=== PATIENT | female | born 1960 | race African-American/Black ===

== ENCOUNTER 2018-08-17 12:42 | Inpatient (IN) | payer OTHER ==
--- NOTE | 2018-08-17 13:37 | PN ---
[facility] Progress Note Note: Patient with hx of cocaine and alcohol dependence and DM II presents today for alcohol detox. Patient is very lethargic, unable to provide urine specimen. Unable to further assess, patient keeps dozing off. HA = 0.00, v/s BP 62/39 repeat 63/34, P79, RR16 BGM 194 AOx2, slurred speech , alcohol on breath EENT WNL s1 s2 lungs clear through out full ROM patient is sent to [facility] for further evaluation, patient is very lethargic and hypotensive sent via [facility]. Called [facility] several times to endorse, no answer.
--- NOTE | 2018-08-18 01:13 | HP ---
CIWA Score Nausea/Vomitin-Mild Nausea/No Vomiting Muscle Tremors: 4-Moderate,w/Arms Extend Anxiety: 3 Agitation: 0-Normal Activity Paroxysmal Sweats: 2 Orientation: 0-Oriented Tacttile Disturbances: 0-None Auditory Disturbances: 0-None Visual Disturbances: 2-Mild Sensitivity Headache: 3-Moderate CIWA-Ar Total Score: 15 - Admission Criteria OASAS Guidelines: Admission for Medically Managed Detox: Requires at least one of the followin. CIWA greater than 12 2. Seizures within the past 24 hours 3. Delirium tremens within the past 24 hours 4. Hallucinations within the past 24 hours 5. Acute intervention needed for co occurring medical disorder 6. Acute intervention needed for co occurring psychiatric disorder 7. Severe withdrawal that cannot be handled at a lower level of care (continued vomiting, continued diarrhea, abnormal vital signs) requiring intravenous medication and/or fluids 8. Admission ROS [facility] Chief Complaint: Alcohol withdrawal symptoms Allergies/Adverse Reactions: Allergies Allergy/AdvReac Type Severity Reaction Status Date / Time No Known Allergies Allergy Verified 08/17/18 13:52 History of Present Illness: 58 years old female with a long history of alcohol dependence is seeking admission to detox. Patient has been to previous detox and reports insignificant period of sobriety. she has medical history of hypothyroidism, HIV+ (on Trimeq, unknown VL, CD4 -follows PCP in [place]), NIDDM, BPD, acid reflux, Substance abuse (cocaine and alcohol). She denies suicide attempt/ suicidal ideation at this time. Exam Limitations: No Limitations - Ebola screening Have you traveled outside of the country in the last 21 days: No Have you had contact with anyone from an Ebola affected area: No Have you been sick,other than usual withdrawal symptoms: No Do you have a fever: No - Review of Systems Constitutional: Chills, Loss of Appetite, Malaise, Night Sweats, Changes in sleep EENT: reports: Sinus Pressure Respiratory: reports: No Symptoms reported Cardiac: reports: No Symptoms Reported GI: reports: Difficulty Swallowing, Poor Appetite, Poor Fluid Intake, Indigestion, Abdominal cramping : reports: No Symptoms Reported Musculoskeletal: reports: Back Pain, Muscle Weakness Integumentary: reports: Dryness, Flushing Neuro: reports: Tremors Endocrine: reports: No Symptoms Reported Hematology: reports: No Symptoms Reported Psychiatric: reports: Mood/Affect Appropiate, Orientated x3, Anxious, Depressed Other Systems: Reviewed and Negative Patient History - Patient Medical History Hx Anemia: No Hx Asthma: Yes (Albuterol) Hx Chronic Obstructive Pulmonary Disease (COPD): No Hx Cancer: No Hx Cardiac Disorders: No Hx Congestive Heart Failure: No Hx Hypertension: No Hx Hypercholesterolemia: No Hx Pacemaker: No HX Cerebrovascular Accident: No Hx Seizures: No Hx Dementia: No Hx Diabetes: Yes Hx Gastrointestinal Disorders: Yes Hx Liver Disease: Yes Hx Sexually Transmitted Disorders: Yes Hx Renal Disease (ESRD): Yes Hx Thyroid Disease: Yes Hx Human Immunodeficiency Virus (HIV): Yes Hx Hepatitis C: No Hx Depression: Yes Hx Suicide Attempt: No (Denies suicidal ideation at thus time) Hx Bipolar Disorder: Yes Hx Schizophrenia: Yes - Patient Surgical History Past Surgical History: No Hx Orthopedic Surgery: Yes (spine surgeryand left knee) Hx Hysterectomy: Yes (1999) - PPD History Previous Implant?: Yes Documented Results: Negative w/o proof Implanted On Prior R Admission?: No Date: 08/18/18 PPD to be Administered?: Yes - Reproductive History Patient is a Female of Child Bearing Age (11 -55 yrs old): Yes LMP comment: Hysterectomy 1999 - Smoking Cessation Smoking history: Never smoked Have you smoked in the past 12 months: No Hx Chewing Tobacco Use: No Initiated information on smoking cessation: No - Substance & Tx. History Hx Alcohol Use: Yes Hx Substance Use: Yes Substance Use Type: Alcohol, Cocaine Hx Substance Use Treatment: No - Substances Abused Alcohol Route: Oral Amount used: vodka -2 pint Age of first use: 19 Date of Last Use: 08/17/18 Family Disease History - Family Disease History Family History: Denies Admission Physical Exam [facility] - Physical General Appearance: Yes: Appropriately Dressed, Moderate Distress HEENTM: Yes: Hearing grossly Normal, Normal ENT Inspection, Normocephalic, Normal Voice, CARLEEN, Rhinorrhea Respiratory: Yes: Lungs Clear, Normal Breath Sounds, No Respiratory Distress Neck: Yes: Supple Breast: Yes: Breast Exam Deferred Cardiology: Yes: Murmur, Tachycardia Abdominal: Yes: Distended Genitourinary: Yes: Uregency Back: Yes: Normal Inspection Musculoskeletal: Yes: Back pain, Muscle Pain Extremities: Yes: Normal Inspection Neurological: Yes: quality assurance analyst II-XII NML intact, Alert, Normal Mood/Affect Integumentary: Yes: Normal Color, Warm Lymphatic: Yes: Within Normal Limits - Diagnostic (1) Uncomplicated alcohol dependence Current Visit: Yes Status: Chronic (2) Hypothyroid Current Visit: Yes Status: Chronic (3) HIV (human immunodeficiency virus infection) Current Visit: Yes Status: Chronic (4) Asthma Current Visit: Yes Status: Chronic Qualifiers: Asthma severity: moderate (5) DM type 2 (diabetes mellitus, type 2) Current Visit: Yes Status: Chronic Qualifiers: Diabetes mellitus complication status: without complication Cleared for Admission S - Detox or Rehab [facility] Level of Care: Medically Managed Detox Regimen/Protocol: Librium Inpatient Rehab Admission - Rehab Decision to Admit Inpatient rehab admission?: No
[2018-08-18] MEDS ORDERED: MENTHOL/PHENOL 1 EACH UD MM PRN ×2 (01:38→08:04)
[2018-08-18] MEDS ORDERED: ACETAMINOPHEN 325 MG TABLET (FP) PO PRN ×4 (01:38→08:04)
[2018-08-18] MEDS ORDERED: METHOCARBAMOL 500 MG TABLET PO PRN ×2 (01:38→08:04)
[2018-08-18] MEDS ORDERED: chlordiazePOXIDE HCL 25 MG CAPSULE PO PRN (01:38)
[2018-08-18] MEDS ORDERED: IBUPROFEN 400 MG TABLET (FP) PO PRN ×2 (01:38→08:04)
[2018-08-18] MEDS ORDERED: BISMUTH SUBSALICYLATE 524 MG/30 ML UD PO PRN (01:38)
[2018-08-18] MEDS ORDERED: hydrOXYzine PAMOATE 25 MG CAPSULE (FP) PO PRN ×2 (01:38→08:04)
[2018-08-18] MEDS ORDERED: MAGNESIUM CITRATE 300 ML BOTTLE PO PRN ×2 (01:38→08:04)
[2018-08-18] MEDS ORDERED: MELATONIN 5 MG TABLETS PO PRN ×2 (01:38→08:04)
[2018-08-18] MEDS ORDERED: MAG HYDROX/AL HYDROX/SIMETH 30 ML UNIT-DOSE CUP PO PRN ×2 (01:38→08:04)
[2018-08-18] MEDS ORDERED: MAGNESIUM HYDROX 2400MG/30ML ORAL SUSPENSION 30 ML CUP PO PRN ×2 (01:38→08:04)
[2018-08-18] MEDS ORDERED: chlordiazePOXIDE HCL 25 MG CAPSULE PO SCH (05:00)
--- NOTE | 2018-08-18 07:00 | HP ---
CIWA Score - Admission Criteria OASAS Guidelines: Admission for Medically Managed Detox: Requires at least one of the followin. CIWA greater than 12 2. Seizures within the past 24 hours 3. Delirium tremens within the past 24 hours 4. Hallucinations within the past 24 hours 5. Acute intervention needed for co occurring medical disorder 6. Acute intervention needed for co occurring psychiatric disorder 7. Severe withdrawal that cannot be handled at a lower level of care (continued vomiting, continued diarrhea, abnormal vital signs) requiring intravenous medication and/or fluids 8. Admission ROS [facility] - HPI Allergies/Adverse Reactions: Allergies Allergy/AdvReac Type Severity Reaction Status Date / Time No Known Allergies Allergy Verified 08/17/18 13:52 - Ebola screening Have you traveled outside of the country in the last 21 days: No Have you had contact with anyone from an Ebola affected area: No Have you been sick,other than usual withdrawal symptoms: No Do you have a fever: No Patient History - Patient Medical History Hx Asthma: Yes Hx Chronic Obstructive Pulmonary Disease (COPD): No Hx Cardiac Disorders: No Hx Hypertension: No Hx Seizures: No Hx Diabetes: Yes Hx Gastrointestinal Disorders: No Hx Genitourinary Disorders: No Hx Sexually Transmitted Disorders: Yes Hx Renal Disease (ESRD): No Hx Depression: Yes Hx Suicide Attempt: No Hx Schizophrenia: Yes - Patient Surgical History Past Surgical History: No Hx Neurologic Surgery: No Hx Cataract Extraction: No Hx Cardiac Surgery: No Hx Lung Surgery: No Hx Breast Surgery: No Hx Breast Biopsy: No Hx Abdominal Surgery: No Hx Appendectomy: No Hx Cholecystectomy: No Hx Genitourinary Surgery: No Hx Section: No Hx Orthopedic Surgery: No Anesthesia Reaction: No - PPD History Previous Implant?: No - Reproductive History Patient : No - Smoking Cessation Smoking history: Never smoked Hx Chewing Tobacco Use: No - Substances Abused Alcohol Route: Oral Frequency: 1-2 times per week Amount used: 1 gallon Age of first use: 48 Date of Last Use: 08/16/18 Crack Route: Smoking Frequency: 1-3 times last 30 days Amount used: $100-$1000 Age of first use: 18 Date of Last Use: 08/16/18 Admission Physical Exam S - Vital Signs Vital Signs: Vital Signs - 24 hr 08/17/18 08/17/18 08/18/18 13:01 23:52 03:06 Temperature 96.8 F L 98.2 F Pulse Rate 79 90 91 H Respiratory 16 18 18 Rate Blood Pressure 60/36 L 128/54 L 120/73 08/18/18 06:52 Temperature 97.5 F L Pulse Rate 100 H Respiratory 20 Rate Blood Pressure 121/73
--- NOTE | 2018-08-18 07:51 | HP ---
CIWA Score Nausea/Vomitin-Mild Nausea/No Vomiting Muscle Tremors: 4-Moderate,w/Arms Extend Anxiety: 3 Agitation: 0-Normal Activity Paroxysmal Sweats: 2 Orientation: 0-Oriented Tacttile Disturbances: 0-None Auditory Disturbances: 0-None Visual Disturbances: 2-Mild Sensitivity Headache: 3-Moderate CIWA-Ar Total Score: 15 - Admission Criteria OASAS Guidelines: Admission for Medically Managed Detox: Requires at least one of the followin. CIWA greater than 12 2. Seizures within the past 24 hours 3. Delirium tremens within the past 24 hours 4. Hallucinations within the past 24 hours 5. Acute intervention needed for co occurring medical disorder 6. Acute intervention needed for co occurring psychiatric disorder 7. Severe withdrawal that cannot be handled at a lower level of care (continued vomiting, continued diarrhea, abnormal vital signs) requiring intravenous medication and/or fluids 8. Admission ROS [facility] Chief Complaint: Alcohol withdrawal symptoms Allergies/Adverse Reactions: Allergies Allergy/AdvReac Type Severity Reaction Status Date / Time No Known Allergies Allergy Verified 08/17/18 13:52 History of Present Illness: 58 years old female with a long history of alcohol dependence is seeking admission to detox. Patient has been to previous detox and reports insignificant period of sobriety. she has medical history of hypothyroidism, HIV+ (on Trimeq, unknown VL, CD4 -follows PCP in [place]), NIDDM, BPD, acid reflux, Substance abuse (cocaine and alcohol). She denies suicide attempt/ suicidal ideation at this time. - Ebola screening Have you traveled outside of the country in the last 21 days: No Have you had contact with anyone from an Ebola affected area: No Have you been sick,other than usual withdrawal symptoms: No Do you have a fever: No - Review of Systems Constitutional: Chills, Loss of Appetite, Malaise, Night Sweats, Changes in sleep EENT: reports: Sinus Pressure Respiratory: reports: No Symptoms reported Cardiac: reports: No Symptoms Reported GI: reports: Diarrhea, Nausea, Poor Appetite, Poor Fluid Intake, Abdominal cramping : reports: No Symptoms Reported Musculoskeletal: reports: Back Pain Integumentary: reports: Dryness, Flushing Neuro: reports: Tremors Endocrine: reports: No Symptoms Reported Hematology: reports: No Symptoms Reported Psychiatric: reports: Mood/Affect Appropiate, Orientated x3, Anxious, Depressed Other Systems: Reviewed and Negative Patient History - Patient Medical History Hx Asthma: Yes Hx Chronic Obstructive Pulmonary Disease (COPD): No Hx Cardiac Disorders: No Hx Hypertension: No Hx Seizures: No Hx Diabetes: Yes Hx Gastrointestinal Disorders: No Hx Genitourinary Disorders: No Hx Sexually Transmitted Disorders: Yes Hx Renal Disease (ESRD): No Hx Depression: Yes Hx Suicide Attempt: No Hx Schizophrenia: Yes - Patient Surgical History Past Surgical History: No Hx Neurologic Surgery: No Hx Cataract Extraction: No Hx Cardiac Surgery: No Hx Lung Surgery: No Hx Breast Surgery: No Hx Breast Biopsy: No Hx Abdominal Surgery: No Hx Appendectomy: No Hx Cholecystectomy: No Hx Genitourinary Surgery: No Hx Section: No Hx Orthopedic Surgery: No Anesthesia Reaction: No - PPD History Previous Implant?: No PPD to be Administered?: Yes - Reproductive History Patient is a Female of Child Bearing Age (11 -55 yrs old): Yes LMP comment: HYSTRECTOMY 2000 Patient : No - Smoking Cessation Smoking history: Never smoked Have you smoked in the past 12 months: No Hx Chewing Tobacco Use: No Initiated information on smoking cessation: No - Substance & Tx. History Hx Alcohol Use: Yes Hx Substance Use: Yes Substance Use Type: Cocaine Hx Substance Use Treatment: [facility] - Substances Abused Alcohol Route: Oral Frequency: 1-2 times per week Amount used: 1 gallon Age of first use: 48 Date of Last Use: 08/16/18 Crack Route: Smoking Frequency: 1-3 times last 30 days Amount used: $100-$1000 Age of first use: 18 Date of Last Use: 08/16/18 Admission Physical Exam S - Vital Signs Vital Signs: Vital Signs - 24 hr 08/17/18 08/17/18 08/18/18 13:01 23:52 03:06 Temperature 96.8 F L 98.2 F Pulse Rate 79 90 91 H Respiratory 16 18 18 Rate Blood Pressure 60/36 L 128/54 L 120/73 08/18/18 06:52 Temperature 97.5 F L Pulse Rate 100 H Respiratory 20 Rate Blood Pressure 121/73 - Physical General Appearance: Yes: Moderate Distress, Tremorous, Anxious HEENTM: Yes: EOMI, Normal ENT Inspection, Normal Voice, Muffled/Hoarse Voice Respiratory: Yes: Lungs Clear, Normal Breath Sounds, No Respiratory Distress Neck: Yes: Supple Breast: Yes: Breast Exam Deferred Cardiology: Yes: Regular Rhythm, Regular Rate Abdominal: Yes: Normal Bowel Sounds Genitourinary: Yes: Within Normal Limits Back: Yes: Normal Inspection Musculoskeletal: Yes: Back pain, Muscle Pain Extremities: Yes: Tremors Neurological: Yes: Alert, Normal Mood/Affect Integumentary: Yes: Warm Lymphatic: Yes: Within Normal Limits - Diagnostic (1) Asthma Current Visit: Yes Status: Chronic Qualifiers: Asthma severity: moderate (2) DM type 2 (diabetes mellitus, type 2) Current Visit: Yes Status: Chronic Qualifiers: Diabetes mellitus complication status: without complication (3) HIV (human immunodeficiency virus infection) Current Visit: Yes Status: Chronic (4) Uncomplicated alcohol dependence Current Visit: No Status: Chronic (5) Alcohol dependence with uncomplicated withdrawal Current Visit: Yes Status: Chronic (6) Hypothyroid Current Visit: Yes Status: Chronic Cleared for Admission S - Detox or Rehab [facility] Level of Care: Medically Managed Detox Regimen/Protocol: Librium Inpatient Rehab Admission - Rehab Decision to Admit Inpatient rehab admission?: No
[2018-08-18] MEDS ORDERED: BISMUTH SUBSALICYLATE 262 MG/15 ML BTL PO PRN (08:04)
[2018-08-18] MEDS ORDERED: chlordiazePOXIDE HCL 10 MG CAPSULE PO PRN (08:04)
[2018-08-18] MEDS ORDERED: NICOTINE 14 MG/24 HOURS TOPICAL PATCH TD SCH (10:00)
[2018-08-18] MEDS ORDERED: PRENATAL VITAMINS W/ FOLIC ACID TABLET (FP) PO SCH (10:00)
[2018-08-18] MEDS: PRENATAL VITAMINS W/ FOLIC ACID TABLET (FP) PO SCH (10:44)
[2018-08-18] MEDS: chlordiazePOXIDE HCL 25 MG CAPSULE PO ONE ×2 (10:45→10:56)
--- NOTE | 2018-08-18 10:54 | PN ---
S CIWA - CIWA Score Nausea/Vomitin-No Nausea/No Vomiting Muscle Tremors: 3 Anxiety: 3 Agitation: 3 Paroxysmal Sweats: 3 Orientation: 0-Oriented Tacttile Disturbances: 0-None Auditory Disturbances: 0-None Visual Disturbances: 0-None Headache: 1-Very Mild CIWA-Ar Total Score: 13 [facility] Progress Note (SOAP) Subjective: sweats irritable agitation interrupted sleep I need all my regular meds ordered. Objective: 08/18/18 10:54 Vital Signs Temperature 98.6 F 08/18/18 09:32 Pulse Rate 93 H 08/18/18 09:32 Respiratory Rate 08/18/18 09:32 Blood Pressure 122/76 08/18/18 09:32 O2 Sat by Pulse Oximetry (%) Laboratory Tests 08/17/18 08/18/18 13:04 07:23 POC Glucometer 194 91 rest of labs were drawn at [place] ED yesterday. Labs noted no need to repeat labs aaox3 ambulating no acute distress Assessment: 08/18/18 10:56 withdrawal sx Plan: continue detox increase fluids will review pt home medication, reconcile and order
[2018-08-18] MEDS ORDERED: PATIENT'S OWN MEDICATION (NON-FORMULARY) (Meloxicam 7.5 MG) PO PRN (11:16)
[2018-08-18] MEDS: chlordiazePOXIDE HCL 25 MG CAPSULE PO SCH ×2 (12:00→22:20)
[2018-08-18] MEDS: PATIENT'S OWN MED:DOLUTEGRAVIR SODIUM 50 MG TABLET (NON-FORMULARY) PO SCH (12:30)
[2018-08-18] MEDS: ASPIRIN 81 MG CHEWABLE TABLETS PO SCH (12:30)
[2018-08-18] MEDS: BACLOFEN 10 MG TABLET (FP) PO PRN ×2 (12:30→22:24)
[2018-08-18] MEDS: LAMIVUDINE 300 MG PO SCH (12:31)
[2018-08-18] MEDS: CALCIUM 500MG/VIT-D 200 UNITS COMBO TABLET (FP) PO SCH ×2 (12:33→22:20)
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
[2018-08-18] MEDS ORDERED: metFORMIN HCL 500 MG TABLET (FP) PO SCH (16:30)
[2018-08-18] MEDS: METFORMIN HCL 500 MG PO SCH (17:30)
[2018-08-18] MEDS ORDERED: THIAMINE HCL 100 MG TABLET (FP) PO SCH (22:00)
[2018-08-18] MEDS: QUEtiapine FUMARATE 100 MG TABLET (FP) PO SCH (22:20)
[2018-08-18] MEDS: THIAMINE HCL 100 MG TABLET (FP) PO SCH (22:20)
[2018-08-18] MEDS: SIMVASTATIN PO SCH (22:21)
[2018-08-19] MEDS ORDERED: chlordiazePOXIDE HCL 25 MG CAPSULE PO SCH (05:00)
[2018-08-19] MEDS: METFORMIN HCL 500 MG PO SCH ×2 (06:24→16:53)
[2018-08-19] MEDS: chlordiazePOXIDE HCL 25 MG CAPSULE PO SCH (06:24)
[2018-08-19] MEDS: LEVOTHYROXINE NA 112 MCG TABLET (FP) PO SCH (06:25)
[2018-08-19] MEDS ORDERED: COLLOIDAL OATMEAL 1 BAR EACH TP PRN (08:55)
[2018-08-19] MEDS: ASPIRIN 81 MG CHEWABLE TABLETS PO SCH (10:36)
[2018-08-19] MEDS: CALCIUM 500MG/VIT-D 200 UNITS COMBO TABLET (FP) PO SCH ×2 (10:37→22:11)
[2018-08-19] MEDS: QUEtiapine FUMARATE 50 MG TABLET PO SCH (10:37)
[2018-08-19] MEDS: ESCITALOPRAM OXALATE 10 MG TABLET (FP) PO SCH (10:37)
[2018-08-19] MEDS: MINERAL OIL/PETROLAT/WATER TOPICAL CREAM 113 GM JAR TP SCH ×2 (10:37→22:11)
[2018-08-19] MEDS: LAMIVUDINE 300 MG PO SCH (10:37)
[2018-08-19] MEDS: PRENATAL VITAMINS W/ FOLIC ACID TABLET (FP) PO SCH (10:37)
[2018-08-19] MEDS: PATIENT'S OWN MED:DOLUTEGRAVIR SODIUM 50 MG TABLET (NON-FORMULARY) PO SCH (10:38)
[2018-08-19] MEDS: ABACAVIR SULFATE 300 MG TABLET PO SCH (10:39)
--- NOTE | 2018-08-19 12:32 | PN ---
S CIWA - CIWA Score Nausea/Vomitin-No Nausea/No Vomiting Muscle Tremors: 3 Anxiety: 3 Agitation: 3 Paroxysmal Sweats: 3 Orientation: 0-Oriented Tacttile Disturbances: 0-None Auditory Disturbances: 0-None Visual Disturbances: 0-None Headache: 0-None Present CIWA-Ar Total Score: 12 [facility] Progress Note (SOAP) Subjective: sweats agitation i need aveeno soap and moisturizing cream because I have eczema Objective: 08/19/18 12:31 Vital Signs Temperature 98.1 F 08/19/18 09:47 Pulse Rate 81 08/19/18 09:47 Respiratory Rate 18 08/19/18 09:47 Blood Pressure 135/79 08/19/18 09:47 O2 Sat by Pulse Oximetry (%) Laboratory Tests 08/17/18 08/18/18 08/18/18 13:04 07:23 16:40 POC Glucometer 194 91 123 08/19/18 06:26 POC Glucometer 95 aaox3 ambulating no acute distress Assessment: 08/19/18 12:31 withdrawal sx Plan: continue detox increase fluids vitamin a&d eucerin cream aveeno soap
[2018-08-19] MEDS: chlordiazePOXIDE 5 MG CAPSULE PO SCH ×2 (12:44→22:11)
[2018-08-19] MEDS: BACLOFEN 10 MG TABLET (FP) PO PRN (22:11)
[2018-08-19] MEDS: SIMVASTATIN PO SCH (22:12)
[2018-08-19] MEDS: QUEtiapine FUMARATE 100 MG TABLET (FP) PO SCH (22:12)
[2018-08-19] MEDS: THIAMINE HCL 100 MG TABLET (FP) PO SCH (22:12)
[2018-08-20] MEDS ORDERED: chlordiazePOXIDE HCL 10 MG CAPSULE PO SCH ×2 (05:00→13:00)
[2018-08-20] MEDS ORDERED: chlordiazePOXIDE HCL 10 MG CAPSULE PO PRN ×2 (05:00→13:00)
[2018-08-20] MEDS: chlordiazePOXIDE 5 MG CAPSULE PO SCH (05:53)
[2018-08-20] MEDS: LEVOTHYROXINE NA 112 MCG TABLET (FP) PO SCH (07:06)
[2018-08-20] MEDS: METFORMIN HCL 500 MG PO SCH ×2 (07:06→17:03)
[2018-08-20] MEDS: CALCIUM 500MG/VIT-D 200 UNITS COMBO TABLET (FP) PO SCH ×2 (10:13→22:07)
[2018-08-20] MEDS: ESCITALOPRAM OXALATE 10 MG TABLET (FP) PO SCH (10:13)
[2018-08-20] MEDS: QUEtiapine FUMARATE 50 MG TABLET PO SCH (10:13)
[2018-08-20] MEDS: LAMIVUDINE 300 MG PO SCH (10:14)
[2018-08-20] MEDS: ASPIRIN 81 MG CHEWABLE TABLETS PO SCH (10:14)
[2018-08-20] MEDS: PRENATAL VITAMINS W/ FOLIC ACID TABLET (FP) PO SCH (10:14)
[2018-08-20] MEDS: ABACAVIR SULFATE 300 MG TABLET PO SCH (10:14)
[2018-08-20] MEDS: MINERAL OIL/PETROLAT/WATER TOPICAL CREAM 113 GM JAR TP SCH ×2 (10:15→22:07)
[2018-08-20] MEDS: PATIENT'S OWN MED:DOLUTEGRAVIR SODIUM 50 MG TABLET (NON-FORMULARY) PO SCH (10:15)
[2018-08-20] MEDS: BACLOFEN 10 MG TABLET (FP) PO PRN ×2 (10:18→22:07)
[2018-08-20 12:18] VITALS: BMI 20.3
--- NOTE | 2018-08-20 13:21 | PN ---
[facility] Progress Note (SOAP) Subjective: i need to see the psychiatrist again regarding my seroquel interrupted sleep Objective: 08/20/18 13:20 Vital Signs Temperature 98.6 F 08/20/18 09:23 Pulse Rate 88 08/20/18 09:23 Respiratory Rate 19 08/20/18 09:23 Blood Pressure 108/65 08/20/18 09:23 O2 Sat by Pulse Oximetry (%) aaox3 ambulating no acute distress Assessment: 08/20/18 13:21 mild withdrawal sx Plan: continue detox psych ordered d/c in am
[2018-08-20] MEDS: chlordiazePOXIDE HCL 10 MG CAPSULE PO SCH (20:10)
[2018-08-20] MEDS: THIAMINE HCL 100 MG TABLET (FP) PO SCH (22:06)
[2018-08-20] MEDS: SIMVASTATIN PO SCH (22:07)
[2018-08-20] MEDS: QUEtiapine FUMARATE 100 MG TABLET (FP) PO SCH (22:07)
[2018-08-21] MEDS: chlordiazePOXIDE HCL 10 MG CAPSULE PO SCH (06:15)
[2018-08-21] MEDS: METFORMIN HCL 500 MG PO SCH (07:10)
[2018-08-21] MEDS: LEVOTHYROXINE NA 112 MCG TABLET (FP) PO SCH (07:10)
[2018-08-21 07:45] VITALS: BP 139/93; PULSE 78; TEMP 97.7
[2018-08-21] MEDS: ESCITALOPRAM OXALATE 10 MG TABLET (FP) PO SCH (09:44)
[2018-08-21] MEDS: PRENATAL VITAMINS W/ FOLIC ACID TABLET (FP) PO SCH (09:44)
[2018-08-21] MEDS: ASPIRIN 81 MG CHEWABLE TABLETS PO SCH (09:44)
[2018-08-21] MEDS: CALCIUM 500MG/VIT-D 200 UNITS COMBO TABLET (FP) PO SCH (09:44)
[2018-08-21] MEDS: QUEtiapine FUMARATE 50 MG TABLET PO SCH (09:46)
[2018-08-21] MEDS: LAMIVUDINE 300 MG PO SCH (09:46)
[2018-08-21] MEDS: PATIENT'S OWN MED:DOLUTEGRAVIR SODIUM 50 MG TABLET (NON-FORMULARY) PO SCH (09:46)
[2018-08-21] MEDS: MINERAL OIL/PETROLAT/WATER TOPICAL CREAM 113 GM JAR TP SCH (09:47)
[2018-08-21] MEDS ORDERED: chlordiazePOXIDE HCL 10 MG CAPSULE PO SCH (10:00)
--- NOTE | 2018-08-21 12:15 | DS ---
[facility] Detox Discharge Summary Admission Date: 08/18/18 Discharge Date: 08/21/18 - History Present History: Alcohol Dependence Pertinent Past History: GERD, asthma, DM, HIV +, Bipolar disorder, schizophrenia, MDD and hypothyroidism - Physical Exam Results Vital Signs: Vital Signs Temperature 97.7 F 08/21/18 07:45 Pulse Rate 78 08/21/18 07:45 Respiratory Rate 18 08/21/18 07:45 Blood Pressure 139/93 08/21/18 07:45 O2 Sat by Pulse Oximetry (%) Pertinent Admission Physical Exam Findings: Withdrawal sx Laboratory Last Values POC Glucometer 111 UNITS (80-120) 08/20/18 22:51 - Treatment Hospital Course: Detox Protocol Followed, Detoxed Safely, Responded well, Discharged Condition Good Patient has Accepted a Rehab Referral to: [facility] - Medication Discharge Medications: Ambulatory Orders Escitalopram Oxalate [Lexapro -] 10 mg PO DAILY 08/18/18 Quetiapine Fumarate [Seroquel -] 100 mg PO HS 08/18/18 Quetiapine Fumarate [Seroquel] 100 mg PO DAILY 08/18/18 - Diagnosis (1) Hypothyroid Status: Chronic (2) HIV (human immunodeficiency virus infection) Status: Chronic (3) Asthma Status: Chronic Qualifiers: Asthma severity: moderate (4) DM type 2 (diabetes mellitus, type 2) Status: Chronic Qualifiers: Diabetes mellitus complication status: without complication (5) Alcohol dependence with uncomplicated withdrawal Status: Acute (6) Schizoaffective disorder Status: Chronic (7) Mood disorder Status: Chronic - AMA Did Patient Leave Against Medical Advice: No
== END 2018-08-21 09:50 | disposition home or self-care (01) | DRG 897 ==
LOC: EDSEX → YASAS 12:42 → Y6N 08-18 01:08
PROVIDERS: ADMIT Surgery; ATTEND Surgery
PROC: HZ2ZZZZ Detoxification Services for Substance Abuse Treatment (ICD-10-PCS; principal; 2018-08-18)
PROC: HZ2ZZZZ Detoxification Services for Substance Abuse Treatment (ICD-10-PCS; 2018-08-18)
DX: F10.230 Alcohol dependence with withdrawal, uncomplicated (principal); F33.9 Major depressive disorder, recurrent, unspecified; F25.9 Schizoaffective disorder, unspecified; F39 Unspecified mood [affective] disorder; Z21 Asymptomatic human immunodeficiency virus [HIV] infection status; E03.9 Hypothyroidism, unspecified; E11.9 Type 2 diabetes mellitus without complications; J45.909 Unspecified asthma, uncomplicated; K21.9 Gastro-esophageal reflux disease without esophagitis; Z79.84 Long term (current) use of oral hypoglycemic drugs
CPT/HCPCS: 36415; 71045-TC-FY; 80053; 80307; 81003; 82550; 82962; 83605; 84443; 84484; 85025; 85610; 93005; 93010; 99284-25; J0475; J7030

== ENCOUNTER 2018-08-17 13:46 | Emergency (ER) | payer OTHER | END 2018-08-17 21:42 | disposition home or self-care (01) | LOC: JER 13:46 ==

== ENCOUNTER 2019-07-05 20:04 | Emergency (ER) | payer OTHER ==
[2019-07-05 21:03] VITALS: TEMP 98.1; BMI 31.6
--- NOTE | 2019-07-05 22:29 | PDOC ---
Documentation entered by Franky Lopez SCRIBE, acting as scribe for Keila Lynn MD. Keila Lynn MD: This documentation has been prepared by the John duarte Xhesika, SCRIBE, under my direction and personally reviewed by me in its entirety. I confirm that the documentation accurately reflects all work, treatment, procedures, and medical decision making performed by me. Attending Attestation - Resident Resident Name: Domenico García - ED Attending Attestation I have performed the following: I have examined & evaluated the patient, The case was reviewed & discussed with the resident, I agree w/resident's findings & plan, Exceptions are as noted - HPI HPI: 07/05/19 22:13 The patient is a 59 year old female with no significant PMH of DM, alcohol dependence, cocaine use, HIV, hypothyroidism who presents to the emergency department for 6 days of L leg pain. Pt states 2 days ago she defecated on herself. Pt reports having a total L knee replacement last year. The patient denies chest pain, shortness of breath, headache and dizziness. Denies fever, chills, cough, nausea, vomiting, diarrhea and constipation. Denies dysuria, frequency, urgency and hematuria. Allergies: Sulfur Dioxide Past surgical history: total L knee replacement - Physicial Exam PE: 07/05/19 22:27 Patient is alert and conversant Abdomen nontender Lungs are clear to auscultation CVS regular rate and rhythm Normal rectal tone Neuro patient can ambulate,Alert and oriented x3, no gross focal neural deficits 07/06/19 02:09 - Medical Decision Making 07/05/19 22:27 59-year-old female past medical history of hypothyroidism, HIV, asthma, type 2 diabetes, EtOH dependence, schizoaffective disorder brought in by ambulance for left leg pain. No acute trauma. She has a history of pain and does see a rn pain management 07/06/19 01:40 I STOP was reviewed and she did get opiates from her PCP 05/31/19 07/06/19 02:06 CAT scan of her cervical spine did not show any fracture, no subluxation CAT scan of the thoracic spine did not show any fracture CAT scan of her lumbar vertebrae did show that her hardware was intact, no fracture 07/06/19 02:08 Patient can ambulate by herself to the bathroom 07/06/19 02:11 Chronic musculoskeletal pain. Plain films are pending patient has received Toradol Patient signed out to Dr. Valencia
--- NOTE | 2019-07-05 23:16 | PDOC ---
History of Present Illness - General Chief Complaint: Pain, Acute Stated Complaint: LEG PAIN Time Seen by Provider: 07/05/19 22:04 History Source: Patient Exam Limitations: No Limitations - History of Present Illness Initial Comments: 59 yo F with a hx of DM, ETOH abuse, cocaine use, HIV, hypothyroidism, and surgical intervention with left knee replacement and left femur stabilization presents to the emergency department with 6 days of acute on chronic left leg pain and self defecation on herself for the past 2 days. Per the patient, she uses oxycodone and stated she had it filled last month (May 2019) and ran out of her medications ahead of schedule (she endorses that she should be taking 1 pill per day but has been taking 3 pills per day). She had total left knee replacement last year done at [facility]. In relation to the self defecation , the patient states she has had a difficult time holding her stools in over the past 2 days. Denies new muscle weakness in the left leg and denies sensation loss in the left leg. Denies the following: fevers, chills, chest pain, SOB, headache, urinary incontinence, dizziness, lightheadedness, unstable gait (she uses a cane at baseline; no changes in ability to ambulate), dysuria, hematuria, and N/V. Denies diarrhea. Allergies: Sulfur dioxide Social: Denies current use of illicit substances. Denies current use of ETOH and tobacco. Past History - Past Medical History Allergies/Adverse Reactions: Allergies Allergy/AdvReac Type Severity Reaction Status Date / Time sulfur dioxide AdvReac Hives Verified 07/05/19 21:31 Home Medications: Ambulatory Orders Abacavir/Dolutegravir/Lamivudi [Triumeq Tablet] 1 each PO DAILY 07/05/19 Acetaminophen [Tylenol] 650 mg PO PRN PRN 07/05/19 Albuterol Sulfate Inhaler - [Ventolin Hfa Inhaler -] 1 puff IH PRN PRN 07/05/19 Aspirin [ASA -] 325 mg PO BID 07/05/19 Budesonide/Formeterol Fumarate [SYMBICORT 80/4.5mcg -] 1 inh PO BID 07/05/19 Duloxetine HCl 20 mg PO DAILY 07/05/19 Famotidine 20 mg PO BID 07/05/19 Fluticasone Furoate [Arnuity Ellipta] 50 mcg IH PRN PRN 07/05/19 Gabapentin [Neurontin -] 300 mg PO TID 07/05/19 Gabapentin [Neurontin] 100 mg PO TID 07/05/19 Levothyroxine [Synthroid -] 150 mcg PO DAILY 07/05/19 Lidocaine HCl [Aspercreme] 76.5 gm TP PRN PRN 07/05/19 Metformin HCl [Glucophage] 500 mg PO BID 07/05/19 Oxycodone HCl 10 mg PO PRN PRN 07/05/19 Simvastatin 40 mg PO HS 07/05/19 Asthma: Yes (Albuterol) Cardiac Disorders: No COPD: No Diabetes: Yes GI Disorders: Yes Disorders: No HTN: No Kidney Stones: No Seizures: No - Surgical History Abdominal Surgery: No Appendectomy: No Cardiac Surgery: No Cholecystectomy: No Lung Surgery: No Neurologic Surgery: No Orthopedic Surgery: Yes (spine surgeryand left knee) - Reproductive History PID: No - Psycho Social/Smoking Cessation Hx Smoking History: Never smoked Have you smoked in the past 12 months: No Hx Alcohol Use: No Drug/Substance Use Hx: No Substance Use Type: Alcohol, Cocaine Hx Substance Use Treatment: No Review of Systems - Review of Systems Able to Perform ROS?: Yes Is the patient limited [place] proficient: No Constitutional: No: Chills, Diaphoresis, Fever, Weakness HEENTM: No: Ear Pain, Nose Pain, Throat Pain, Mouth Pain Respiratory: No: Cough, Shortness of Breath, Hemoptysis Cardiac (ROS): No: Chest Pain, Lightheadedness, Palpitations, Chest Tightness ABD/GI: No: Constipated, Diarrhea, Nausea, Rectal Bleeding, Vomiting, Tarry Stools : No: Burning, Dysuria, Hematuria Musculoskeletal: Yes: Back Pain (lower lumbar back), Joint Pain (left knee and hip). No: Muscle Weakness, Neck Pain Integumentary: No: Bruising, Erythema, Rash Neurological: No: Headache, Numbness, Paresthesia, Tingling, Tremors, Ataxia Psychiatric: No: Change in Appetite Endocrine: No: Unexplained Weight Loss Hematologic/Lymphatic: No: Anemia *Physical Exam - Vital Signs Last Vital Signs Temp Pulse Resp BP Pulse Ox 98.1 F 77 18 125/74 99 07/05/19 20:15 07/05/19 20:15 07/05/19 20:15 07/05/19 20:15 07/05/19 20:15 - Physical Exam General Appearance: Yes: Nourished, Appropriately Dressed. No: Apparent Distress, Intoxicated HEENT: positive: EOMI, CARLEEN, Normal Voice, Symmetrical, Pharynx Normal, Hearing Grossly Normal, Other (missing teeth). negative: Pale Conjunctivae, Scleral Icterus (R), Scleral Icterus (L), Muffled/Hoarse voice, Pharyngeal Erythema, Tonsillar Exudate, Tonsillar Erythema, Nasal Congestion, Rhinorrhea, Excessive drooling Neck: positive: Trachea midline, Supple. negative: Tender, Lymphadenopathy (R) , Lymphadenopathy (L) Respiratory/Chest: positive: Lungs Clear, Normal Breath Sounds. negative: Chest Tender, Respiratory Distress, Accessory Muscle Use Cardiovascular: positive: Regular Rhythm, Regular Rate, S1, S2. negative: Systolic Murmur Gastrointestinal/Abdominal: positive: Normal Bowel Sounds, Flat, Soft. negative : Tender Rectal Exam: positive: normal exam, normal rectal tone. negative: melena Lymphatic: negative: Adenopathy Musculoskeletal: positive: Normal Inspection, Vertebral Tenderness (midline in the lumbar region L3-L5). negative: CVA Tenderness Extremity: positive: Normal Capillary Refill, Normal Inspection, Normal Range of Motion, Tender (in the anterior left femur section and anterior knee. ROM intact on active and passive. No sensory deficits. ) Integumentary: positive: Normal Color Neurologic: positive: methods analyst II-XII NML intact, Fully Oriented, Alert, Normal Mood/ Affect, Normal Response, Motor Strength 5/5. negative: EOM Palsy, Facial Droop , Numbness, Sensory Deficit ED Treatment Course - RADIOLOGY Radiology Studies Ordered: Category Date Time Status CERVICAL SPINE CT W/O CONTR [CT] Stat CT Scan 07/05/19 22:[address] W/O CONTRAST [CT] Stat CT Scan 07/05/19 22:[address] W/O CONTRAST [CT] Stat CT Scan 07/05/19 22:44 Ordered FEMUR-LEFT [RAD] Stat Radiology 07/05/19 22:44 Ordered HIP & PELVIS-LEFT [RAD] Stat Radiology 07/05/19 22:44 Ordered KNEE 3 POS-LEFT [RAD] Stat Radiology 07/05/19 22:44 Ordered Medical Decision Making - Medical Decision Making 59 yo F with a hx of DM, ETOH abuse, cocaine use, HIV, hypothyroidism, and surgical intervention with left knee replacement and left femur stabilization presents to the emergency department with 6 days of acute on chronic left leg pain and self defecation on herself for the past 2 days. Initial vitals: Initial Vital Signs Temp Pulse Resp BP Pulse Ox 98.1 F 77 18 125/74 99 07/05/19 20:15 07/05/19 20:15 07/05/19 20:15 07/05/19 20:15 07/05/19 20:15 Work up: patient presents with acute on chronic leg pain, knee pain, and hip pain. will obtain imaging to rule out new fractures. denies trauma. Rectal examination chaperoned by Rashmi CT of the cervical, thoracic, and lumbar spine does not show fracture. Xrays of the femur and knee shows hardware in place without new fractures. 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 07/06/19 04:41 Patient observed in the emergency department ambulating on her own volition on multiple occassions to the bathroom without deficits. The patient was given 30 mg of toradol for pain management and also prescribed tylenol but refused the medication stating to the nurse that "doesnt work". The patient relayed to me that she received her oxycodone in May 2019, however I-stop records indicate that she filled her prescription Jun 17, 2019. When I asked the patient on why she ran out of her oxydocone 2 days ago, she said she was suppose to take 1 pill per day, however was taking 3 pills a day because "that' s what I want". When I asked the patient if that was a pain specialist who prescribed her the oxycodone, she states that Dr. De Los Santos was an emergency medicine doctor who prescribed it from the ED from a recent visit. On internet search, Dr. Dodie De Los Santos is an metal cans supervisor at [facility]. I relayed the findings of the xrays and CT scans to the patient. I offered the patient to, again, trial the tylenol and lidoderm and the patient refused. She became agitated. She has a pain medicine appointment, per the patient, tomorrow. The patient is able to move all 4 extremities spontaneously. Dispo: Discharge Discharge - Discharge Information Problems reviewed: Yes Clinical Impression/Diagnosis: Leg pain Disposition: HOME - Admission No - Additional Discharge Information Prescription Drug Monitoring Program (I-STOP) results: I-STOP reviewed and issues identified - Follow up/Referral Referrals: [facility] [place] [facility] [place] [facility] [place] [Provider Group] Alva Pringle MD [Staff Physician] - Duglas Chu MD [Non Staff, Medical] - Bhavesh Woodard MD [Staff Physician] - Kamar Sams MD [Staff Physician] - Nessa Hutchinson MD [Non Staff, Medical] - Jaylen Dickerson MD [Non Staff, Medical] - Kay Bruner MD [Non Staff, Medical] - Rhonda Coffman MD [Staff Physician] - Taz Bunch MD [Non Staff, Medical] - Lakeshia Khan MD [Staff Physician] - - Patient Discharge Instructions Patient Printed Discharge Instructions: DI for Leg Pain Additional Instructions: You were seen in the emergency department for your leg pain with weakness and pain. Your CT and xrays of your extremities do not show new fractures. You were able to walk around the department without issue. Please follow up with your primary medical doctor within 1 week after discharge. Please keep your appointment with your pain doctor tomorrow. Please continue to use ibuprofen and tylenol as directed on the label as needed. I referred to you multiple physicians who are pain doctors. Please follow up with them within 48 hours after discharge for follow up care and management. Thank you. - Post Discharge Activity Work/Back to School Note: Back to Work
[2019-07-06] MEDS ORDERED: KETOROLAC TROMETHAMINE 30 MG/1 ML VIAL IM ONE (00:52)
[2019-07-06] MEDS ORDERED: ACETAMINOPHEN 325 MG TABLET (FP) PO ONE (00:57)
[2019-07-06] MEDS ORDERED: ACETAMINOPHEN 325 MG TABLET (FP) ONE (01:02)
[2019-07-06] MEDS ORDERED: KETOROLAC TROMETHAMINE 30 MG/1 ML VIAL ONE (01:03)
[2019-07-06 05:33] VITALS: BP 127/78; PULSE 75
== END 2019-07-06 06:45 | disposition home or self-care (01) ==
LOC: JER 20:04
PROC: 3E0233Z Introduction of Anti-inflammatory into Muscle, Percutaneous Approach (ICD-10-PCS; principal; 2019-07-05)
DX: R29.898 Other symptoms and signs involving the musculoskeletal system (principal); M79.605 Pain in left leg; G89.29 Other chronic pain; E11.9 Type 2 diabetes mellitus without complications; Z79.84 Long term (current) use of oral hypoglycemic drugs; E03.9 Hypothyroidism, unspecified; J45.909 Unspecified asthma, uncomplicated; F10.20 Alcohol dependence, uncomplicated; F14.10 Cocaine abuse, uncomplicated; Z21 Asymptomatic human immunodeficiency virus [HIV] infection status; Z88.2 Allergy status to sulfonamides
CPT/HCPCS: 72125-TC; 72128-TC; 72131-TC; 73523-TC-FY; 73552-TC-LT-FY; 73560-TC-LT-FY; 96372; 99284-25

== ENCOUNTER 2021-05-12 15:40 | Emergency (ER) | payer OTHER ==
[2021-05-12 16:07] VITALS: BP 125/77; PULSE 77; TEMP 97; BMI 38.2
[2021-05-12] MEDS ORDERED: KETOROLAC TROMETHAMINE 60 MG/2 ML VIAL ONE (16:51)
[2021-05-12] MEDS ORDERED: KETOROLAC TROMETHAMINE 60 MG/2 ML VIAL IM ONE (16:51)
[2021-05-12] MEDS ORDERED: ONDANSETRON *ODT* 4 MG TABLET SL ONE (19:37)
[2021-05-12] MEDS ORDERED: ONDANSETRON *ODT* 4 MG TABLET ONE (19:37)
== END 2021-05-12 21:00 | disposition home or self-care (01) ==
LOC: JERFT 15:40 → JER 15:40 → JERFT 21:00
PROC: 3E023GC Introduction of Other Therapeutic Substance into Muscle, Percutaneous Approach (ICD-10-PCS; principal; 2021-05-12)
DX: N64.4 Mastodynia (principal); M79.602 Pain in left arm
CPT/HCPCS: 76641-TC-LT; 93971; 99284-25; Q0162

== ENCOUNTER 2022-06-22 01:22 | Inpatient (IN) | payer OTHER ==
[2022-06-22 01:35] VITALS: BMI 35.6
[2022-06-22] MEDS ORDERED: FAMOTIDINE 20 MG TABLET PO ONE (02:01)
[2022-06-22] MEDS ORDERED: diphenhydrAMINE HCL 25 MG CAPSULE (FP) PO ONE ×2 (02:01→02:24)
[2022-06-22] MEDS ORDERED: FAMOTIDINE 20 MG TABLET ONE (02:24)
[2022-06-22] MEDS ORDERED: DEXAMETHASONE 4 MG TABLET (FP) PO ONE (02:29)
[2022-06-22] MEDS ORDERED: DEXAMETHASONE 4 MG TABLET (FP) ONE (02:30)
[2022-06-22 03:26] LABS: EOS % 8.8 % (0-4.5); HEMATOCRIT 39.8 % (32.4-45.2); HEMOGLOBIN 12.9 GM/dL (10.7-15.3); LYMPH % 38.7 % (8-40); MCHC 32.4 g/dl (32.0-36.0); MEAN CELL VOLUME 89.3 fl (80-96); MEAN PLT VOLUME 7.4 fl (7.5-11.1); MONO % 6.3 % (3.8-10.2); NEUT % 45.2 % (42.8-82.8); PLATELET COUNT 446 10^3/uL (134-434); RBC 4.46 M/mm3 (3.60-5.2); RDW 15.4 % (11.6-15.6); WHITE BLOOD COUNT 7.2 K/mm3 (4.0-10.0)
[2022-06-22 03:43] LABS: CHLORIDE 104 mmol/L (98-107); SODIUM 140 mmol/L (136-145)
[2022-06-22 03:45] LABS: CALCIUM 9.7 mg/dL (8.5-10.1); GLUCOSE,RANDOM 102 mg/dL (74-106)
[2022-06-22 03:46] LABS: ALBUMIN 3.9 g/dl (3.4-5.0); ANION GAP 5 MMOL/L (8-16); BLOOD UREA NITROGEN 13.3 mg/dL (7-18); CO2 31 mmol/L (21-32)
[2022-06-22 03:49] LABS: CREATININE 0.7 mg/dL (0.55-1.3); SGOT/AST 25 U/L (15-37); SGPT/ALT 26 U/L (13-61)
[2022-06-22 03:50] LABS: BILIRUBIN,TOTAL 0.3 mg/dL (0.2-1); TOT PROT 7.8 g/dl (6.4-8.2)
[2022-06-22 03:51] LABS: ALK PHOS 108 U/L (45-117)
[2022-06-22] MEDS ORDERED: ASPIRIN 325 MG TABLET PO ONE (04:56)
[2022-06-22] MEDS ORDERED: ASPIRIN 325 MG TABLET ONE (05:40)
[2022-06-22 06:54] LABS: INR 1.04 (0.83-1.09)
[2022-06-22 06:57] LABS: ACTIVATED PTT 35.9 SECONDS (25.2-36.5)
[2022-06-22 09:27] LABS: BASO % 0.8 % (0-2.0); EOS % 0.3 % (0-4.5); HEMATOCRIT 38.9 % (32.4-45.2); HEMOGLOBIN 12.9 GM/dL (10.7-15.3); LYMPH % 16.7 % (8-40); MCH 29.4 pg (25.7-33.7); MCHC 33.1 g/dl (32.0-36.0); MEAN CELL VOLUME 88.8 fl (80-96); MEAN PLT VOLUME 7.9 fl (7.5-11.1); MONO % 1.2 % (3.8-10.2); PLATELET COUNT 456 10^3/uL (134-434); RBC 4.39 M/mm3 (3.60-5.2); RDW 15.1 % (11.6-15.6); WHITE BLOOD COUNT 5.2 K/mm3 (4.0-10.0)
[2022-06-22 09:31] LABS: INR 1.08 (0.83-1.09); PROTHROMBIN TIME (PATIENT) 12.4 SEC (9.7-13.0)
[2022-06-22] MEDS ORDERED: ASPIRIN 81 MG CHEWABLE TABLETS ONE (09:44)
[2022-06-22] MEDS ORDERED: metoPROLOL SUCCINATE 25 MG TAB.SR.24H (FP) PO ONE (09:44)
[2022-06-22] MEDS ORDERED: ENOXAPARIN NA (PORCINE) 40 MG/0.4 ML DISP.SYRIN SQ ONE (09:44)
[2022-06-22] MEDS: ENOXAPARIN NA (PORCINE) 40 MG/0.4 ML DISP.SYRIN SQ SCH (09:49)
[2022-06-22] MEDS: ABACAVIR/DOLUTEGRAVIR/LAMIVUDI (TRIUMEQ) TABLET -NF PO SCH ×2 (09:49→12:44)
[2022-06-22] MEDS: ASPIRIN 81 MG CHEWABLE TABLETS PO SCH (09:49)
[2022-06-22 09:50] LABS: CHLORIDE 105 mmol/L (98-107); SODIUM 140 mmol/L (136-145)
[2022-06-22 09:54] LABS: ALBUMIN 3.9 g/dl (3.4-5.0); BLOOD UREA NITROGEN 11.7 mg/dL (7-18); GLUCOSE,RANDOM 117 mg/dL (74-106)
[2022-06-22 09:55] LABS: ANION GAP 7 MMOL/L (8-16); CO2 28 mmol/L (21-32)
[2022-06-22 09:57] LABS: SGOT/AST 23 U/L (15-37); SGPT/ALT 26 U/L (13-61)
[2022-06-22 09:58] LABS: BILIRUBIN,TOTAL 0.3 mg/dL (0.2-1); TOT PROT 7.9 g/dl (6.4-8.2)
[2022-06-22 09:59] LABS: ALK PHOS 102 U/L (45-117); CREATININE 0.7 mg/dL (0.55-1.3)
[2022-06-22] MEDS: metoPROLOL SUCCINATE 25 MG TAB.SR.24H (FP) PO SCH (10:12)
[2022-06-22 10:30] LABS: METHADONE, UR NEGATIVE (NEGATIVE); PHENCYCLIDINE,URINE NEGATIVE (NEGATIVE); URINE BENZODIAZEPINES NEGATIVE (NEGATIVE)
[2022-06-22 10:32] LABS: OPIATES, URI NEGATIVE (NEGATIVE)
[2022-06-22 10:36] LABS: COCAINE, UR NEGATIVE (NEGATIVE)
[2022-06-22] MEDS: INSULIN SLIDING SCALE (NOVOLOG) 1 VIAL SQ SCH ×2 (10:45→17:44)
[2022-06-22 10:46] LABS: URINE AMPHETAMINES NEGATIVE (NEGATIVE); URINE BARBITURATES NEGATIVE (NEGATIVE)
[2022-06-22] MEDS ORDERED: ALBUTEROL SO4 HFA INHALER IH PRN (15:53)
[2022-06-22] MEDS ORDERED: ACETAMINOPHEN 325 MG TABLET (FP) PO PRN (15:55)
[2022-06-22] MEDS: BUDESONIDE/FORMETEROL FUMARATE 160/4.5 mcg INHALER IH SCH (21:13)
[2022-06-22] MEDS: ROSUVASTATIN CA 20 MG TABLET PO SCH (21:14)
[2022-06-23] MEDS: LEVOTHYROXINE NA 125 MCG TABLET (FP) PO SCH (06:45)
[2022-06-23] MEDS: INSULIN SLIDING SCALE (NOVOLOG) 1 VIAL SQ SCH ×4 (06:47→17:45)
[2022-06-23] MEDS: BUDESONIDE/FORMETEROL FUMARATE 160/4.5 mcg INHALER IH SCH ×2 (10:27→21:47)
[2022-06-23] MEDS: ENOXAPARIN NA (PORCINE) 40 MG/0.4 ML DISP.SYRIN SQ SCH (10:27)
[2022-06-23] MEDS: ASPIRIN 81 MG CHEWABLE TABLETS PO SCH (10:27)
[2022-06-23] MEDS: metoPROLOL SUCCINATE 25 MG TAB.SR.24H (FP) PO SCH (10:27)
[2022-06-23] MEDS: ABACAVIR/DOLUTEGRAVIR/LAMIVUDI (TRIUMEQ) TABLET -NF PO SCH (10:27)
[2022-06-23 12:22] LABS: BASO % 0.7 % (0-2.0); EOS % 0.9 % (0-4.5); HEMATOCRIT 39.5 % (32.4-45.2); LYMPH % 43.1 % (8-40); MCH 29.2 pg (25.7-33.7); MEAN CELL VOLUME 88.6 fl (80-96); MEAN PLT VOLUME 7.9 fl (7.5-11.1); MONO % 5.7 % (3.8-10.2); NEUT % 49.6 % (42.8-82.8); PLATELET COUNT 430 10^3/uL (134-434); RBC 4.46 M/mm3 (3.60-5.2); RDW 15.6 % (11.6-15.6); WHITE BLOOD COUNT 8.3 K/mm3 (4.0-10.0)
[2022-06-23] MEDS: POLYETHYLENE GLYCOL (HEALTHYLAX) 3350 17 GM PACKET PO SCH (12:25)
[2022-06-23 12:28] LABS: INR 0.96 (0.83-1.09)
[2022-06-23 12:30] LABS: ACTIVATED PTT 35.8 SECONDS (25.2-36.5)
[2022-06-23 12:39] LABS: CHLORIDE 104 mmol/L (98-107); SODIUM 142 mmol/L (136-145)
[2022-06-23 12:41] LABS: CALCIUM 9.4 mg/dL (8.5-10.1)
[2022-06-23 12:42] LABS: ALBUMIN 3.9 g/dl (3.4-5.0); ANION GAP 11 MMOL/L (8-16); BLOOD UREA NITROGEN 16.1 mg/dL (7-18); CO2 26 mmol/L (21-32); GLUCOSE,RANDOM 86 mg/dL (74-106)
[2022-06-23 12:44] LABS: CREATININE 0.8 mg/dL (0.55-1.3); PHOSPHOROUS 3.8 mg/dL (2.5-4.9); SGOT/AST 16 U/L (15-37)
[2022-06-23 12:45] LABS: SGPT/ALT 23 U/L (13-61)
[2022-06-23 12:46] LABS: BILIRUBIN,TOTAL 0.4 mg/dL (0.2-1); TOT PROT 7.7 g/dl (6.4-8.2)
[2022-06-23 12:47] LABS: ALK PHOS 92 U/L (45-117)
[2022-06-23 12:50] LABS: N-TERMINAL BNP 103.2 pg/ml (5-125)
[2022-06-23] MEDS: DOXYCYCLINE HYCLATE 100 MG CAPSULE PO SCH (17:42)
[2022-06-23] MEDS: ROSUVASTATIN CA 20 MG TABLET PO SCH (21:47)
[2022-06-24] MEDS: INSULIN SLIDING SCALE (NOVOLOG) 1 VIAL SQ SCH ×2 (06:19→12:14)
[2022-06-24] MEDS: LEVOTHYROXINE NA 125 MCG TABLET (FP) PO SCH (06:34)
[2022-06-24 08:20] LABS: EOS % 3.1 % (0-4.5); HEMATOCRIT 38.6 % (32.4-45.2); HEMOGLOBIN 12.8 GM/dL (10.7-15.3); LYMPH % 53.5 % (8-40); MCH 29.5 pg (25.7-33.7); MEAN CELL VOLUME 89.3 fl (80-96); MEAN PLT VOLUME 8.5 fl (7.5-11.1); MONO % 5.4 % (3.8-10.2); PLATELET COUNT 372 10^3/uL (134-434); RBC 4.33 M/mm3 (3.60-5.2); RDW 15.3 % (11.6-15.6)
[2022-06-24 08:22] LABS: CALCIUM 9.1 mg/dL (8.5-10.1)
[2022-06-24 08:23] LABS: BLOOD UREA NITROGEN 16.5 mg/dL (7-18)
[2022-06-24 08:26] LABS: CREATININE 0.8 mg/dL (0.55-1.3)
[2022-06-24 08:28] LABS: BILIRUBIN,TOTAL 0.6 mg/dL (0.2-1); TOT PROT 7.4 g/dl (6.4-8.2)
[2022-06-24] MEDS: DOXYCYCLINE HYCLATE 100 MG CAPSULE PO SCH (09:57)
[2022-06-24] MEDS: POLYETHYLENE GLYCOL (HEALTHYLAX) 3350 17 GM PACKET PO SCH (09:57)
[2022-06-24] MEDS: metoPROLOL SUCCINATE 25 MG TAB.SR.24H (FP) PO SCH (09:57)
[2022-06-24] MEDS: ASPIRIN 81 MG CHEWABLE TABLETS PO SCH (09:57)
[2022-06-24] MEDS: ENOXAPARIN NA (PORCINE) 40 MG/0.4 ML DISP.SYRIN SQ SCH (09:58)
[2022-06-24] MEDS: BUDESONIDE/FORMETEROL FUMARATE 160/4.5 mcg INHALER IH SCH (09:58)
[2022-06-24] MEDS: ABACAVIR/DOLUTEGRAVIR/LAMIVUDI (TRIUMEQ) TABLET -NF PO SCH (10:00)
[2022-06-24 10:17] VITALS: BP 150/86; PULSE 72; RESP 18; TEMP 97.8
== END 2022-06-24 14:43 | disposition home or self-care (01) | DRG 976 ==
LOC: JER 01:22 → JERBED 05:43 → OBSVTOIN 09:27 → J4W 18:58
PROVIDERS: ADMIT Internal Medicine; ATTEND Internal Medicine
DX: U07.1 COVID-19 (principal); B20 Human immunodeficiency virus [HIV] disease; E11.9 Type 2 diabetes mellitus without complications; E03.9 Hypothyroidism, unspecified; R07.89 Other chest pain; F25.9 Schizoaffective disorder, unspecified; F10.10 Alcohol abuse, uncomplicated
CPT/HCPCS: 0241U-QW; 36415; 71045-TC-FY; 80053; 80307; 82962; 83735; 83880; 84100; 84443; 84479; 84484; 85025; 85610; 85651; 85730; 86140; 93005; 93010; 99285-25; G0378

== ENCOUNTER 2022-08-07 12:58 | Observation (INO) | payer OTHER ==
[2022-08-07] MEDS ORDERED: ACETAMINOPHEN 1000 MG/100 ML BAG IVPB ONE (14:34)
[2022-08-07] MEDS ORDERED: ACETAMINOPHEN INJECTION 100 ML IVPB ONE (14:51)
[2022-08-07 15:44] LABS: BASO % 0.7 % (0-2.0); EOS % 3.7 % (0-4.5); HEMATOCRIT 36.8 % (32.4-45.2); HEMOGLOBIN 11.7 GM/dL (10.7-15.3); LYMPH % 44.7 % (8-40); MCH 27.8 pg (25.7-33.7); MCHC 31.8 g/dl (32.0-36.0); MEAN CELL VOLUME 87.4 fl (80-96); MEAN PLT VOLUME 7.6 fl (7.5-11.1); MONO % 6.6 % (3.8-10.2); NEUT % 44.3 % (42.8-82.8); PLATELET COUNT 294 10^3/uL (134-434); RBC 4.21 M/mm3 (3.60-5.2); RDW 16.1 % (11.6-15.6); WHITE BLOOD COUNT 5.2 K/mm3 (4.0-10.0)
[2022-08-07 15:50] LABS: INR 1.15 (0.83-1.09); PROTHROMBIN TIME (PATIENT) 13.3 SEC (9.7-13.0)
[2022-08-07 15:53] LABS: ACTIVATED PTT 34.2 SECONDS (25.2-36.5)
[2022-08-07] MEDS ORDERED: oxyCODONE HCL 5 MG TABLET PO ONE (15:54)
[2022-08-07 16:04] LABS: CALCIUM 9.5 mg/dL (8.5-10.1)
[2022-08-07 16:05] LABS: ALBUMIN 3.4 g/dl (3.4-5.0); MAGNESIUM 1.9 mg/dL (1.8-2.4)
[2022-08-07 16:08] LABS: CREATININE 0.8 mg/dL (0.55-1.3)
[2022-08-07 16:10] LABS: BILIRUBIN,TOTAL 0.6 mg/dL (0.2-1)
[2022-08-07 16:13] LABS: N-TERMINAL BNP 36.4 pg/ml (5-125)
[2022-08-07 16:44] LABS: PH,URINE 5.5 (5.0-8.0); URINE APPEARANCE CLEAR; URINE BILIRUBIN NEGATIVE (NEGATIVE); URINE COLOR YELLOW; URINE GLUCOSE (UA) NEGATIVE (NEGATIVE); URINE KETONE NEGATIVE (NEGATIVE); URINE LEUK ESTERASE NEGATIVE (NEGATIVE); URINE NITRITE NEGATIVE (NEGATIVE); URINE PROTEIN NEGATIVE (NEGATIVE); URINE UROBILINOGEN 0.2 mg/dL (0.2-1.0)
[2022-08-07] MEDS ORDERED: oxyCODONE HCL 5 MG TABLET ONE (17:04)
[2022-08-07] MEDS ORDERED: ACETAMINOPHEN 325 MG TABLET (FP) PO PRN (19:03)
[2022-08-07] MEDS ORDERED: KETOROLAC TROMETHAMINE 10 MG TABLET PO PRN (19:03)
[2022-08-07] MEDS ORDERED: ONDANSETRON 4 MG/2 ML VIAL IVPUSH ONE (20:23)
[2022-08-07] MEDS ORDERED: ONDANSETRON 4 MG/2 ML VIAL ONE (20:28)
[2022-08-07] MEDS ORDERED: MAG HYDROX/AL HYDROX/SIMETH 30 ML UNIT-DOSE CUP PO ONE (23:16)
[2022-08-07] MEDS: GABAPENTIN 300 MG CAPSULE PO SCH (23:19)
[2022-08-07] MEDS: BUDESONIDE/FORMETEROL FUMARATE 160/4.5 mcg INHALER IH SCH (23:20)
[2022-08-07] MEDS: QUEtiapine FUMARATE 25 MG TABLET PO SCH (23:20)
[2022-08-08 00:24] VITALS: BMI 30.4
[2022-08-08] MEDS: GABAPENTIN 300 MG CAPSULE PO SCH ×4 (05:54→21:46)
[2022-08-08 07:45] LABS: HEMATOCRIT 36.3 % (32.4-45.2); HEMOGLOBIN 11.9 GM/dL (10.7-15.3); MCH 28.5 pg (25.7-33.7); MCHC 32.8 g/dl (32.0-36.0); MEAN CELL VOLUME 86.8 fl (80-96); MEAN PLT VOLUME 8.2 fl (7.5-11.1); PLATELET COUNT 244 10^3/uL (134-434); RBC 4.19 M/mm3 (3.60-5.2); RDW 16.2 % (11.6-15.6); WHITE BLOOD COUNT 4.1 K/mm3 (4.0-10.0)
[2022-08-08 08:19] LABS: ALBUMIN 3.2 g/dl (3.4-5.0); BLOOD UREA NITROGEN 20.5 mg/dL (7-18); CALCIUM 9.3 mg/dL (8.5-10.1)
[2022-08-08 08:23] LABS: CREATININE 0.8 mg/dL (0.55-1.3)
[2022-08-08 08:24] LABS: BILIRUBIN,TOTAL 0.6 mg/dL (0.2-1)
[2022-08-08 08:25] LABS: TOT PROT 6.4 g/dl (6.4-8.2)
[2022-08-08] MEDS: QUEtiapine FUMARATE 25 MG TABLET PO SCH (10:00)
[2022-08-08] MEDS: BUDESONIDE/FORMETEROL FUMARATE 160/4.5 mcg INHALER IH SCH ×2 (10:00→21:36)
[2022-08-08] MEDS: ENOXAPARIN NA (PORCINE) 40 MG/0.4 ML DISP.SYRIN SQ SCH (10:00)
[2022-08-08] MEDS ORDERED: metoPROLOL SUCCINATE 25 MG TAB.SR.24H (FP) PO SCH (10:00)
[2022-08-08] MEDS: ABACAVIR/DOLUTEGRAVIR/LAMIVUDI (TRIUMEQ) TABLET PO SCH (10:00)
[2022-08-08] MEDS ORDERED: ARIPiprazole 15 MG TABLET PO SCH (10:00)
[2022-08-08] MEDS ORDERED: ACETAMINOPHEN 325 MG TABLET (FP) PO PRN (12:28)
[2022-08-08] MEDS: oxyCODONE HCL 5 MG TABLET PO PRN ×2 (15:48→23:52)
[2022-08-08] MEDS ORDERED: ALBUTEROL SO4 HFA INHALER IH PRN (15:56)
[2022-08-08] MEDS ORDERED: PATIENT'S OWN MEDICATION (NON-FORMULARY) (Meloxicam [Meloxicam] 7.5 MG Tablet) PO SCH (22:00)
[2022-08-08] MEDS ORDERED: QUEtiapine FUMARATE 100 MG TABLET (FP) PO SCH (22:00)
[2022-08-08] MEDS ORDERED: ATORVASTATIN CA 20 MG TABLET (FP) PO SCH (22:00)
[2022-08-08] MEDS ORDERED: QUEtiapine FUMARATE 200 MG TABLET PO SCH (22:00)
[2022-08-09] MEDS ORDERED: diphenhydrAMINE HCL 25 MG CAPSULE (FP) PO ONE (00:45)
[2022-08-09] MEDS: GABAPENTIN 300 MG CAPSULE PO SCH ×2 (06:11→13:37)
[2022-08-09] MEDS ORDERED: LEVOTHYROXINE NA 100 MCG TABLET (FP) PO SCH (07:00)
[2022-08-09] MEDS: ENOXAPARIN NA (PORCINE) 40 MG/0.4 ML DISP.SYRIN SQ SCH (09:36)
[2022-08-09] MEDS: ABACAVIR/DOLUTEGRAVIR/LAMIVUDI (TRIUMEQ) TABLET PO SCH (09:37)
[2022-08-09] MEDS: BUDESONIDE/FORMETEROL FUMARATE 160/4.5 mcg INHALER IH SCH (09:39)
[2022-08-09] MEDS ORDERED: CHOLECALCIFEROL (VIT D3) 400 UNIT (10 MCG) TABLET PO SCH (10:00)
[2022-08-09 11:35] VITALS: RESP 17
[2022-08-09 14:11] VITALS: BP 102/69; PULSE 71; TEMP 97.8
== END 2022-08-09 16:04 | disposition home health service (06) ==
LOC: JER 12:58 → JERBED 17:22 → J4S 22:26
PROVIDERS: ADMIT Internal Medicine; ATTEND Internal Medicine
PROC: 3E033NZ Introduction of Analgesics, Hypnotics, Sedatives into Peripheral Vein, Percutaneous Approach (ICD-10-PCS; principal; 2022-08-07)
PROC: 3E023GC Introduction of Other Therapeutic Substance into Muscle, Percutaneous Approach (ICD-10-PCS; 2022-08-07)
PROC: 3E033NZ Introduction of Analgesics, Hypnotics, Sedatives into Peripheral Vein, Percutaneous Approach (ICD-10-PCS; 2022-08-07)
PROC: 3E033GC Introduction of Other Therapeutic Substance into Peripheral Vein, Percutaneous Approach (ICD-10-PCS; 2022-08-07)
DX: U07.1 COVID-19 (principal); B20 Human immunodeficiency virus [HIV] disease; M79.7 Fibromyalgia; G89.29 Other chronic pain; F31.9 Bipolar disorder, unspecified; M79.602 Pain in left arm; E03.9 Hypothyroidism, unspecified; Z88.8 Allergy status to other drugs, medicaments and biological substances; E66.8 Other obesity; Z68.30 Body mass index [BMI] 30.0-30.9, adult; R07.9 Chest pain, unspecified
CPT/HCPCS: 0241U-QW; 36415; 70450-TC; 71045-TC-FY; 72125-TC; 73030-TC-LT-FY; 80053; 81003; 82550; 83036; 83735; 83880; 84439; 84443; 84484; 85025; 85027; 85610; 85730; 86038; 86140; 87086; 93005; 93010; 93971; 96372; 96374; 96375; 97116-GP; 97161-GP; 99285-25; G0378

== ENCOUNTER 2022-11-26 11:50 | Emergency (ER) | payer OTHER ==
[2022-11-26 11:56] VITALS: RESP 18; TEMP 98.1; BMI 36.6
[2022-11-26 13:32] LABS: BASO % 0.9 % (0-2.0); EOS % 10.5 % (0-4.5); HEMATOCRIT 38.2 % (32.4-45.2); HEMOGLOBIN 12.3 GM/dL (10.7-15.3); LYMPH % 39.1 % (8-40); MCH 30.5 pg (25.7-33.7); MCHC 32.3 g/dl (32.0-36.0); MEAN CELL VOLUME 94.3 fl (80-96); MEAN PLT VOLUME 8.8 fl (7.5-11.1); MONO % 6.9 % (3.8-10.2); NEUT % 42.6 % (42.8-82.8); PLATELET COUNT 261 10^3/uL (134-434); RBC 4.05 M/mm3 (3.60-5.2); RDW 15.8 % (11.6-15.6); WHITE BLOOD COUNT 6.2 K/mm3 (4.0-10.0)
[2022-11-26 13:39] LABS: INR 0.96 (0.83-1.09); PROTHROMBIN TIME (PATIENT) 11.1 SEC (9.7-13.0)
[2022-11-26 13:42] LABS: ACTIVATED PTT 20.6 SECONDS (25.2-36.5)
[2022-11-26 14:07] LABS: POTASSIUM 4.1 mmol/L (3.5-5.1)
[2022-11-26 14:09] LABS: ALBUMIN 3.8 g/dl (3.4-5.0); BLOOD UREA NITROGEN 15.2 mg/dL (7-18)
[2022-11-26 14:12] LABS: CREATININE 0.7 mg/dL (0.55-1.3)
[2022-11-26 14:14] LABS: BILIRUBIN,TOTAL 0.3 mg/dL (0.2-1); TOT PROT 7.3 g/dl (6.4-8.2)
[2022-11-26 15:37] VITALS: BP 117/73; PULSE 73
== END 2022-11-26 15:38 | disposition home or self-care (01) ==
LOC: JER 11:50
DX: R23.3 Spontaneous ecchymoses (principal)
CPT/HCPCS: 36415; 80053; 84597; 85025; 85610; 85730; 99283-25

== ENCOUNTER 2023-06-05 06:12 | Emergency (ER) | payer OTHER ==
[2023-06-05 06:17] VITALS: BP 144/84; PULSE 68; RESP 18; TEMP 98.4; BMI 35.5
[2023-06-05] MEDS ORDERED: LACTATED RINGERS SOLUTION 1000 ML INFUS.BAG IV ONE (08:03)
[2023-06-05] MEDS ORDERED: METOCLOPRAMIDE HCL INJECTION 10 MG/2 ML VIAL IVPUSH ONE (08:03)
[2023-06-05] MEDS ORDERED: ACETAMINOPHEN 1000 MG/100 ML BAG IVPB ONE (08:03)
[2023-06-05 08:31] LABS: PH,URINE 6.5 (5.0-8.0); URINE APPEARANCE CLEAR; URINE BILIRUBIN NEGATIVE (NEGATIVE); URINE COLOR YELLOW; URINE GLUCOSE (UA) NEGATIVE (NEGATIVE); URINE KETONE 2+ (NEGATIVE); URINE LEUK ESTERASE NEGATIVE (NEGATIVE); URINE NITRITE NEGATIVE (NEGATIVE); URINE PROTEIN NEGATIVE (NEGATIVE); URINE UROBILINOGEN 0.2 mg/dL (0.2-1.0)
[2023-06-05] MEDS ORDERED: METOCLOPRAMIDE HCL INJECTION 10 MG/2 ML VIAL ONE (08:37)
[2023-06-05] MEDS ORDERED: oxyCODONE HCL 5 MG TABLET PO ONE (09:05)
[2023-06-05 09:09] LABS: BASO % 1.1 % (0-2.0); EOS % 3.5 % (0-4.5); HEMATOCRIT 38.7 % (32.4-45.2); LYMPH % 37.2 % (8-40); MCH 30.3 pg (25.7-33.7); MCHC 33.7 g/dl (32.0-36.0); MEAN CELL VOLUME 90.1 fl (80-96); MEAN PLT VOLUME 7.7 fl (7.5-11.1); MONO % 6.2 % (3.8-10.2); PLATELET COUNT 341 10^3/uL (134-434); RBC 4.29 M/mm3 (3.60-5.2); WHITE BLOOD COUNT 4.6 K/mm3 (4.0-10.0)
[2023-06-05 09:17] LABS: INR 1.13 (0.83-1.09); PROTHROMBIN TIME (PATIENT) 13.1 SEC (9.7-13.0)
[2023-06-05 09:20] LABS: ACTIVATED PTT 33.7 SECONDS (25.2-36.5)
[2023-06-05] MEDS ORDERED: oxyCODONE HCL 5 MG TABLET ONE (09:24)
[2023-06-05 09:40] LABS: ALBUMIN 3.7 g/dl (3.4-5.0); BLOOD UREA NITROGEN 13.5 mg/dL (7-18); CALCIUM 9.6 mg/dL (8.5-10.1); MAGNESIUM 1.8 mg/dL (1.8-2.4)
[2023-06-05 09:43] LABS: CREATININE 0.8 mg/dL (0.55-1.3)
[2023-06-05 09:45] LABS: BILIRUBIN,TOTAL 0.6 mg/dL (0.2-1); TOT PROT 7.4 g/dl (6.4-8.2)
[2023-06-05 09:48] LABS: N-TERMINAL BNP 126.4 pg/ml (5-125)
[2023-06-05] MEDS ORDERED: MAGNESIUM SULF 50% (8.12 MEQ/2 ML-1 GM VIAL) IVPB ONE (10:05)
[2023-06-05 10:52] LABS: POTASSIUM 4.5 mmol/L (3.5-5.1)
[2023-06-05 10:54] LABS: BLOOD UREA NITROGEN 13.6 mg/dL (7-18); CALCIUM 8.7 mg/dL (8.5-10.1); MAGNESIUM 1.7 mg/dL (1.8-2.4)
[2023-06-05 10:56] LABS: CREATININE 0.7 mg/dL (0.55-1.3)
[2023-06-05] MEDS ORDERED: POTASSIUM CHLORIDE ORAL LIQUID 20 MEQ/15 ML PO ONE (12:24)
[2023-06-05] MEDS ORDERED: POTASSIUM CHLORIDE ORAL LIQUID 20 MEQ/15 ML ONE (12:33)
== END 2023-06-05 12:36 | disposition home or self-care (01) ==
LOC: JER 06:12
PROC: 3E033NZ Introduction of Analgesics, Hypnotics, Sedatives into Peripheral Vein, Percutaneous Approach (ICD-10-PCS; principal; 2023-06-05)
PROC: 3E033GC Introduction of Other Therapeutic Substance into Peripheral Vein, Percutaneous Approach (ICD-10-PCS; 2023-06-05)
DX: R51.9 Headache, unspecified (principal); M79.10 Myalgia, unspecified site; R53.1 Weakness; R63.0 Anorexia; B20 Human immunodeficiency virus [HIV] disease; R50.9 Fever, unspecified; R11.0 Nausea; H92.01 Otalgia, right ear; R35.0 Frequency of micturition; R07.9 Chest pain, unspecified; R06.02 Shortness of breath; Z20.822 Contact with and (suspected) exposure to COVID-19
CPT/HCPCS: 0241U-QW; 36415; 70450-TC; 71046-TC-FY; 80048; 80053; 81003; 83735; 83880; 84484; 85025; 85610; 85730; 87086; 93005; 93010; 96374; 96375; 99285-25

== ENCOUNTER 2023-12-31 11:39 | Emergency (ER) | payer OTHER ==
[2023-12-31 11:56] VITALS: BMI 35.2
[2023-12-31] MEDS: LIDOCAINE 4% PATCH TP ONE (14:03)
[2023-12-31] MEDS ORDERED: LIDOCAINE 4% PATCH TP ONE (14:07)
[2023-12-31] MEDS ORDERED: ACETAMINOPHEN INJECTION 100 ML IVPB ONE (14:29)
[2023-12-31] MEDS: ACETAMINOPHEN 1000 MG/100 ML BAG IVPB ONE (14:50)
[2023-12-31] MEDS: SODIUM CHLORIDE 0.9% 500 ML INFUS.BAG IV ONE (14:50)
[2023-12-31 15:05] LABS: BASO % 0.9 % (0-2.0); EOS % 3.4 % (0-4.5); HEMATOCRIT 35.9 % (32.4-45.2); LYMPH % 17.6 % (8-40); MCH 30.6 pg (25.7-33.7); MCHC 33.3 g/dl (32.0-36.0); MEAN CELL VOLUME 91.8 fl (80-96); MONO % 7.9 % (3.8-10.2); NEUT % 70.2 % (42.8-82.8); RBC 3.91 M/mm3 (3.60-5.2); RDW 16.5 % (11.6-15.6)
[2023-12-31 15:11] LABS: WHITE BLOOD COUNT 9.2 K/mm3 (4.0-10.0)
[2023-12-31] MEDS: KETOROLAC TROMETHAMINE 15 MG/ML VIAL IVPUSH ONE (15:28)
[2023-12-31] MEDS ORDERED: KETOROLAC TROMETHAMINE 15 MG/ML VIAL ONE (15:35)
[2023-12-31 15:46] VITALS: BP 113/73; PULSE 89; RESP 20; TEMP 100.5
[2023-12-31] MEDS ORDERED: LIDOCAINE PATCH REMOVAL MC ONE (22:00)
== END 2023-12-31 18:40 | disposition home or self-care (01) ==
LOC: JER 11:39
PROC: 3E033NZ Introduction of Analgesics, Hypnotics, Sedatives into Peripheral Vein, Percutaneous Approach (ICD-10-PCS; principal; 2023-12-31)
PROC: 3E0333Z Introduction of Anti-inflammatory into Peripheral Vein, Percutaneous Approach (ICD-10-PCS; 2023-12-31)
DX: U07.1 COVID-19 (principal); M25.561 Pain in right knee; R07.89 Other chest pain; R05.9 Cough, unspecified; R00.0 Tachycardia, unspecified; R50.9 Fever, unspecified; M79.10 Myalgia, unspecified site; R09.89 Other specified symptoms and signs involving the circulatory and respiratory systems
CPT/HCPCS: 0241U-QW; 36415; 71045-TC-FY; 73562-TC-RT-FY; 84484; 85025; 93005; 93010; 99285-25; J0131

== ENCOUNTER 2024-02-15 08:20 | Observation (INO) | payer OTHER ==
[2024-02-15] MEDS ORDERED: methylPREDNISolone NA SUCC 125 MG/2 ML VIAL ONE (08:25)
[2024-02-15] MEDS: methylPREDNISolone NA SUCC 125 MG/2 ML VIAL IVPUSH ONE (08:29)
[2024-02-15] MEDS: ALBUTEROL SO4 2.5/IPRATROPIUM 0.5 INH SOL 3 ML VIAL.NEB. NEB SCH (08:45)
[2024-02-15 09:10] LABS: VENOUS O2 SATURATION 86.2 % (70-80); VENOUS PCO2 46.6 mmHg (38-52)
[2024-02-15] MEDS: ACETAMINOPHEN 1000 MG/100 ML BAG IVPB ONE (09:15)
[2024-02-15 09:17] LABS: VENOUS PH 7.317 (7.310-7.410)
[2024-02-15 09:19] LABS: INR 0.98 (0.83-1.09); PROTHROMBIN TIME (PATIENT) 11.1 SEC (9.7-13.0)
[2024-02-15] MEDS ORDERED: ACETAMINOPHEN INJECTION 100 ML ONE (09:19)
[2024-02-15 09:20] LABS: CHLORIDE 110 mmol/L (98-107); SODIUM 143 mmol/L (136-145)
[2024-02-15 09:22] LABS: ACTIVATED PTT 34.5 SECONDS (25.2-36.5); CALCIUM 8.8 mg/dL (8.5-10.1)
[2024-02-15 09:23] LABS: ALBUMIN 3.5 g/dl (3.4-5.0); ANION GAP 9 mmol/L (4-13); BLOOD UREA NITROGEN 9.8 mg/dL (7-18); CO2 24 mmol/L (21-32); GLUCOSE,RANDOM 82 mg/dL (74-106)
[2024-02-15 09:26] LABS: CREATININE 0.8 mg/dL (0.55-1.3); SGOT/AST 28 U/L (15-37); SGPT/ALT 27 U/L (13-61)
[2024-02-15 09:28] LABS: BILIRUBIN,TOTAL 0.3 mg/dL (0.2-1); TOT PROT 7.1 g/dl (6.4-8.2)
[2024-02-15 09:29] LABS: ALK PHOS 89 U/L (45-117)
[2024-02-15 09:31] LABS: N-TERMINAL BNP 80.8 pg/ml (5-125)
[2024-02-15 10:15] LABS: BASO % 1.3 % (0-2.0); EOS % 6.4 % (0-4.5); HEMATOCRIT 36.5 % (32.4-45.2); HEMOGLOBIN 12.1 GM/dL (10.7-15.3); LYMPH % 44.8 % (8-40); MCH 30.1 pg (25.7-33.7); MCHC 33.1 g/dl (32.0-36.0); MEAN CELL VOLUME 90.9 fl (80-96); MEAN PLT VOLUME 8.1 fl (7.5-11.1); MONO % 7.2 % (3.8-10.2); NEUT % 40.3 % (42.8-82.8); PLATELET COUNT 387 10^3/uL (134-434); RBC 4.02 M/mm3 (3.60-5.2); RDW 15.9 % (11.6-15.6)
[2024-02-15] MEDS ORDERED: KETOROLAC TROMETHAMINE 15 MG/ML VIAL ONE (10:56)
[2024-02-15] MEDS: KETOROLAC TROMETHAMINE 15 MG/ML VIAL IVPUSH ONE (11:12)
[2024-02-15] MEDS ORDERED: CEFTRIAXONE 1 GM/50 ML BAG ONE (14:03)
[2024-02-15] MEDS ORDERED: ALBUTEROL SO4 HFA INHALER IH PRN ×2 (14:04→14:30)
[2024-02-15] MEDS: CEFTRIAXONE 1 GM in DEXTROSE 5%-WATER - 50 ML IVPB SCH (14:04)
[2024-02-15] MEDS ORDERED: ONDANSETRON *ODT* 4 MG TABLET SL ONE (14:19)
[2024-02-15] MEDS ORDERED: ONDANSETRON *ODT* 4 MG TABLET ONE (14:19)
[2024-02-15] MEDS: AZITHROMYCIN IVPB 500 MG/250 ML BAG IVPB SCH (15:12)
[2024-02-15 15:27] VITALS: BMI 34.2
[2024-02-15] MEDS: ATORVASTATIN CA 20 MG TABLET (FP) PO SCH (22:05)
[2024-02-15] MEDS: GABAPENTIN 300 MG CAPSULE PO SCH (22:05)
[2024-02-15] MEDS: BUDESONIDE/FORMETEROL FUMARATE 160/4.5 mcg INHALER IH SCH (22:07)
[2024-02-15] MEDS: QUEtiapine FUMARATE 100 MG TABLET (FP) PO SCH (23:04)
[2024-02-15] MEDS: ALBUTEROL SO4 2.5/IPRATROPIUM 0.5 INH SOL 3 ML VIAL.NEB. NEB ONE (23:36)
[2024-02-16] MEDS: MELATONIN 5 MG TABLETS PO ONE (00:02)
[2024-02-16] MEDS: hydrOXYzine PAMOATE 25 MG CAPSULE (FP) PO ONE (00:02)
[2024-02-16] MEDS: LEVOTHYROXINE NA 100 MCG TABLET (FP) PO SCH (06:08)
[2024-02-16 08:10] LABS: HEMATOCRIT 34.1 % (32.4-45.2); HEMOGLOBIN 11.3 GM/dL (10.7-15.3); MCH 30.2 pg (25.7-33.7); MCHC 33.2 g/dl (32.0-36.0); MEAN CELL VOLUME 90.9 fl (80-96); MEAN PLT VOLUME 8.3 fl (7.5-11.1); PLATELET COUNT 347 10^3/uL (134-434); RBC 3.75 M/mm3 (3.60-5.2); RDW 16.2 % (11.6-15.6); WHITE BLOOD COUNT 10.7 K/mm3 (4.0-10.0)
[2024-02-16 08:33] LABS: POTASSIUM 3.8 mmol/L (3.5-5.1)
[2024-02-16 08:36] LABS: ALBUMIN 3.2 g/dl (3.4-5.0); BLOOD UREA NITROGEN 17.4 mg/dL (7-18); MAGNESIUM 2.1 mg/dL (1.8-2.4)
[2024-02-16 08:40] LABS: CREATININE 0.9 mg/dL (0.55-1.3)
[2024-02-16 08:41] LABS: BILIRUBIN,TOTAL 0.2 mg/dL (0.2-1); TOT PROT 6.7 g/dl (6.4-8.2)
[2024-02-16] MEDS: predniSONE 20 MG TABLET (UD) PO SCH (11:41)
[2024-02-16] MEDS: ABACAVIR/DOLUTEGRAVIR/LAMIVUDI (TRIUMEQ) TABLET PO SCH (12:42)
[2024-02-16 12:51] LABS: HIV INTERPRETATION NEGATIVE (NEGATIVE)
[2024-02-16 13:18] VITALS: TEMP 98.2
[2024-02-16 13:55] VITALS: BP 172/100; PULSE 78; RESP 20
[2024-02-16] MEDS ORDERED: KETOROLAC TROMETHAMINE 15 MG/ML VIAL IVPUSH PRN (13:58)
== END 2024-02-16 16:17 | disposition home or self-care (01) ==
LOC: JER 08:20 → JERBED 12:45 → J7W 14:34
PROVIDERS: ADMIT Internal Medicine; ATTEND Internal Medicine
PROC: 3E0F7GC Introduction of Other Therapeutic Substance into Respiratory Tract, Via Natural or Artificial Opening (ICD-10-PCS; principal; 2024-02-15)
PROC: 3E0333Z Introduction of Anti-inflammatory into Peripheral Vein, Percutaneous Approach (ICD-10-PCS; 2024-02-15)
PROC: 3E03329 Introduction of Other Anti-infective into Peripheral Vein, Percutaneous Approach (ICD-10-PCS; 2024-02-15)
PROC: 3E033GC Introduction of Other Therapeutic Substance into Peripheral Vein, Percutaneous Approach (ICD-10-PCS; 2024-02-15)
DX: J18.9 Pneumonia, unspecified organism (principal); J45.41 Moderate persistent asthma with (acute) exacerbation; I31.39 Other pericardial effusion (noninflammatory); E03.9 Hypothyroidism, unspecified; B20 Human immunodeficiency virus [HIV] disease; E11.9 Type 2 diabetes mellitus without complications; I10 Essential (primary) hypertension; Z87.891 Personal history of nicotine dependence; Z88.2 Allergy status to sulfonamides; Z88.8 Allergy status to other drugs, medicaments and biological substances
CPT/HCPCS: 0241U-QW; 36415; 71045-TC-FY; 71275-TC; 80053; 82803; 83735; 83880; 84100; 84484; 85025; 85027; 85610; 85651; 85730; 86140; 86359; 86360; 86850; 86900; 86901; 87070; 87205; 87389; 87899; 93005; 93010; 93306-TC; 94640; 94761; 99291; G0378; J0131; Q9967

== ENCOUNTER 2024-08-17 17:19 | Inpatient (IN) | payer OTHER ==
[2024-08-17] MEDS ORDERED: methylPREDNISolone NA SUCC 125 MG/2 ML VIAL ONE (17:31)
[2024-08-17] MEDS ORDERED: MAGNESIUM 1GM/D5W - 1 GM/100 ML IVPB IVPB ONE (17:31)
[2024-08-17] MEDS ORDERED: ALBUTEROL SO4 2.5/IPRATROPIUM 0.5 INH SOL 3 ML VIAL.NEB. NEB ONE (17:31)
[2024-08-17] MEDS ORDERED: ALBUTEROL SO4 0.083% IH SOL 2.5 MG/3 ML VIAL.NEB. NEB ONE ×2 (17:45→23:07)
[2024-08-17] MEDS: ALBUTEROL SO4 2.5/IPRATROPIUM 0.5 INH SOL 3 ML VIAL.NEB. NEB ONE (17:52)
[2024-08-17] MEDS: MAGNESIUM 1GM/D5W - 1 GM/100 ML IVPB IVPB ONE (17:52)
[2024-08-17] MEDS: methylPREDNISolone NA SUCC 125 MG/2 ML VIAL IM ONE (17:52)
[2024-08-17] MEDS ORDERED: LORazepam 2 MG/ML SDV VIAL ONE (18:02)
[2024-08-17 18:11] LABS: BASO % 0.7 % (0-2.0); EOS % 4.3 % (0-4.5); HEMATOCRIT 38.8 % (32.4-45.2); HEMOGLOBIN 12.6 GM/dL (10.7-15.3); LYMPH % 41.8 % (8-40); MCH 28.6 pg (25.7-33.7); MCHC 32.4 g/dl (32.0-36.0); MEAN CELL VOLUME 88.1 fl (80-96); MEAN PLT VOLUME 7.7 fl (7.5-11.1); MONO % 11.1 % (3.8-10.2); NEUT % 42.1 % (42.8-82.8); PLATELET COUNT 281 10^3/uL (134-434); WHITE BLOOD COUNT 7.1 K/mm3 (4.0-10.0)
[2024-08-17 18:35] LABS: POTASSIUM 3.7 mmol/L (3.5-5.1)
[2024-08-17 18:38] LABS: BLOOD UREA NITROGEN 11.4 mg/dL (7-18)
[2024-08-17 18:41] LABS: CREATININE 0.7 mg/dL (0.55-1.3)
[2024-08-17 18:43] LABS: BILIRUBIN,TOTAL 0.4 mg/dL (0.2-1); TOT PROT 7.7 g/dl (6.4-8.2)
[2024-08-17 18:52] LABS: VENOUS O2 SATURATION 65.4 % (70-80); VENOUS PCO2 34.2 mmHg (38-52); VENOUS PH 7.422 (7.310-7.410)
[2024-08-17] MEDS ORDERED: methylPREDNISolone NA SUCC 40 MG/1 ML VIAL ONE (21:27)
[2024-08-17] MEDS: BUDESONIDE/FORMETEROL FUMARATE 160/4.5 mcg INHALER IH ONE (21:46)
[2024-08-17] MEDS ORDERED: BUDESONIDE/FORMETEROL FUMARATE 160/4.5 mcg INHALER IH SCH (22:00)
[2024-08-17] MEDS ORDERED: GABAPENTIN 300 MG CAPSULE ONE (22:09)
[2024-08-17] MEDS ORDERED: ATORVASTATIN CA 20 MG TABLET (FP) ONE (22:09)
[2024-08-17] MEDS ORDERED: LEVOTHYROXINE NA 100 MCG TABLET (FP) ONE (22:09)
[2024-08-17] MEDS ORDERED: QUEtiapine FUMARATE 100 MG TABLET (FP) ONE (22:09)
[2024-08-17] MEDS: QUEtiapine FUMARATE 100 MG TABLET (FP) PO SCH (22:20)
[2024-08-17] MEDS: ATORVASTATIN CA 20 MG TABLET (FP) PO SCH (22:20)
[2024-08-17] MEDS: LEVOTHYROXINE NA 100 MCG TABLET (FP) PO SCH (22:20)
[2024-08-17] MEDS: GABAPENTIN 300 MG CAPSULE PO SCH (22:20)
[2024-08-17] MEDS: methylPREDNISolone NA SUCC 40 MG/1 ML VIAL IVPUSH SCH (22:20)
[2024-08-17] MEDS: ABACAVIR/DOLUTEGRAVIR/LAMIVUDI (TRIUMEQ) TABLET PO SCH (22:34)
[2024-08-17] MEDS: ALBUTEROL SO4 0.083% IH SOL 2.5 MG/3 ML VIAL.NEB. NEB PRN (23:11)
[2024-08-17] MEDS ORDERED: guaiFENesin/D-METHORPHAN HB 10 ML UNIT-DOSE CUPS ONE (23:16)
[2024-08-17] MEDS ORDERED: KETOROLAC TROMETHAMINE 15 MG/ML VIAL ONE (23:17)
[2024-08-18] MEDS: FLUoxetine HCL 20 MG CAPSULE PO SCH ×2 (01:09→22:31)
[2024-08-18 01:25] VITALS: BMI 36.4
[2024-08-18] MEDS: ALBUTEROL SO4 2.5/IPRATROPIUM 0.5 INH SOL 3 ML VIAL.NEB. NEB SCH ×2 (07:27→15:29)
[2024-08-18 08:35] LABS: HEMATOCRIT 35.8 % (32.4-45.2); HEMOGLOBIN 11.6 GM/dL (10.7-15.3); MCH 28.6 pg (25.7-33.7); MCHC 32.6 g/dl (32.0-36.0); MEAN PLT VOLUME 7.7 fl (7.5-11.1); PLATELET COUNT 262 10^3/uL (134-434); RBC 4.07 M/mm3 (3.60-5.2); RDW 17.2 % (11.6-15.6); WHITE BLOOD COUNT 6.9 K/mm3 (4.0-10.0)
[2024-08-18 09:01] LABS: POTASSIUM 3.8 mmol/L (3.5-5.1)
[2024-08-18 09:08] LABS: CALCIUM 8.9 mg/dL (8.5-10.1)
[2024-08-18 09:09] LABS: ALBUMIN 3.5 g/dl (3.4-5.0); MAGNESIUM 2.1 mg/dL (1.8-2.4)
[2024-08-18 09:10] LABS: CREATININE 0.9 mg/dL (0.55-1.3)
[2024-08-18 09:13] LABS: TOT PROT 7.1 g/dl (6.4-8.2)
[2024-08-18 09:15] LABS: BILIRUBIN,TOTAL 0.2 mg/dL (0.2-1)
[2024-08-18] MEDS: BUDESONIDE/FORMETEROL FUMARATE 160/4.5 mcg INHALER IH SCH ×2 (10:49→22:36)
[2024-08-18] MEDS: methylPREDNISolone NA SUCC 40 MG/1 ML VIAL IVPUSH ONE (10:54)
[2024-08-18] MEDS: ENOXAPARIN NA (PORCINE) 40 MG/0.4 ML DISP.SYRIN SQ SCH (10:54)
[2024-08-18 12:46] LABS: ARTERIAL BLD GAS O2 SATURATION 66.8 % (95-98); ARTERIAL BLOOD GAS BASE EXCESS -1.6 mmol/L (-2-2); ARTERIAL BLOOD GAS pH 7.457 (7.350-7.450)
[2024-08-18 13:06] LABS: ALLENS TEST POSITIVE
[2024-08-18 13:07] LABS: VENT RATE 14
[2024-08-18 13:12] LABS: ARTERIAL BLOOD GAS PO2 32.5 mmHg (80-100)
[2024-08-18] MEDS: KETOROLAC TROMETHAMINE 15 MG/ML VIAL IVPUSH ONE (14:28)
[2024-08-18] MEDS ORDERED: ACETAMINOPHEN 1000 MG/100 ML BAG IVPB PRN (15:26)
[2024-08-18] MEDS ORDERED: ENOXAPARIN NA (PORCINE) 60 MG/0.6 ML DISP.SYRIN SQ SCH (15:30)
[2024-08-18] MEDS: PATIENT'S OWN MEDICATION (NON-FORMULARY) (Meloxicam [Meloxicam] 7.5 MG Tablet) PO SCH (15:56)
[2024-08-18] MEDS: PANTOPRAZOLE SODIUM 40 MG VIAL IVPUSH SCH (16:43)
[2024-08-18] MEDS: ENOXAPARIN NA (PORCINE) 100 MG/1 ML DISP.SYRIN SQ ONE (16:44)
[2024-08-18] MEDS: SODIUM CHLORIDE 500 ML IV STA (16:47)
[2024-08-18 17:15] LABS: ARTERIAL BLD GAS O2 SATURATION 97.3 % (95-98); ARTERIAL BLOOD GAS BASE EXCESS -3.8 mmol/L (-2-2); ARTERIAL BLOOD GAS PO2 95.3 mmHg (80-100); ARTERIAL BLOOD GAS pH 7.394 (7.350-7.450)
[2024-08-18 17:16] LABS: ALLENS TEST POSITIVE
[2024-08-18] MEDS: INSULIN ASPART SLIDING SCALE (NOVOLOG) 1 VIAL SQ SCH (17:34)
[2024-08-18] MEDS: methylPREDNISolone NA SUCC 40 MG/1 ML VIAL IVPUSH SCH (17:43)
[2024-08-18] MEDS: ENOXAPARIN NA (PORCINE) 100 MG/1 ML DISP.SYRIN SQ SCH (22:30)
[2024-08-18] MEDS: GABAPENTIN 300 MG CAPSULE PO SCH (22:30)
[2024-08-18] MEDS: ATORVASTATIN CA 20 MG TABLET (FP) PO SCH (22:30)
[2024-08-18] MEDS: MONTELUKAST NA 10 MG TABLET PO SCH (22:30)
[2024-08-18] MEDS: QUEtiapine FUMARATE 100 MG TABLET (FP) PO SCH (22:31)
[2024-08-19] MEDS: ALBUTEROL SO4 0.083% IH SOL 2.5 MG/3 ML VIAL.NEB. NEB PRN (05:45)
[2024-08-19] MEDS: LEVOTHYROXINE NA 100 MCG TABLET (FP) PO SCH (06:06)
[2024-08-19 07:10] LABS: BASO % 0.3 % (0-2.0); HEMATOCRIT 34.8 % (32.4-45.2); HEMOGLOBIN 11.2 GM/dL (10.7-15.3); LYMPH % 8.5 % (8-40); MCH 28.3 pg (25.7-33.7); MCHC 32.3 g/dl (32.0-36.0); MEAN CELL VOLUME 87.7 fl (80-96); MEAN PLT VOLUME 8.1 fl (7.5-11.1); NEUT % 87.2 % (42.8-82.8); PLATELET COUNT 287 10^3/uL (134-434); RBC 3.97 M/mm3 (3.60-5.2); RDW 17.5 % (11.6-15.6); WHITE BLOOD COUNT 12.8 K/mm3 (4.0-10.0)
[2024-08-19 07:21] LABS: POTASSIUM 4.2 mmol/L (3.5-5.1)
[2024-08-19 07:25] LABS: ALBUMIN 3.3 g/dl (3.4-5.0)
[2024-08-19 07:26] LABS: BLOOD UREA NITROGEN 14.7 mg/dL (7-18); CALCIUM 8.8 mg/dL (8.5-10.1); MAGNESIUM 2.1 mg/dL (1.8-2.4)
[2024-08-19 07:29] LABS: BILIRUBIN,TOTAL 0.2 mg/dL (0.2-1); CREATININE 0.9 mg/dL (0.55-1.3); PHOSPHOROUS 2.2 mg/dL (2.5-4.9); TOT PROT 6.8 g/dl (6.4-8.2)
[2024-08-19] MEDS: NAPH,MB-DB/K PH,MBDB POWDER PACKET PO ONE (09:09)
[2024-08-19] MEDS: ABACAVIR/DOLUTEGRAVIR/LAMIVUDI (TRIUMEQ) TABLET PO SCH (09:10)
[2024-08-19] MEDS: ENOXAPARIN NA (PORCINE) 40 MG/0.4 ML DISP.SYRIN SQ SCH (09:55)
[2024-08-19] MEDS ORDERED: ENOXAPARIN NA (PORCINE) 40 MG/0.4 ML DISP.SYRIN SQ SCH (10:00)
[2024-08-19] MEDS ORDERED: LORazepam 2 MG/ML SDV VIAL ONE (13:27)
[2024-08-19 13:47] LABS: ARTERIAL BLD GAS O2 SATURATION 98.9 % (95-98); ARTERIAL BLOOD GAS BASE EXCESS -4.3 mmol/L (-2-2); ARTERIAL BLOOD GAS PO2 149.2 mmHg (80-100); ARTERIAL BLOOD GAS pH 7.362 (7.350-7.450)
[2024-08-19] MEDS: LORazepam 2 MG/ML SDV VIAL IVPUSH ONE (13:50)
[2024-08-19] MEDS: methylPREDNISolone NA SUCC 40 MG/1 ML VIAL IVPUSH ONE (14:05)
[2024-08-19] MEDS: DEXMEDETOMIDINE PREMIX 400 MCG/100 ML BAG IVPB SCH (17:50)
[2024-08-19] MEDS: CODEINE SO4 30 MG TABLET PO PRN (20:17)
[2024-08-19] MEDS: CHLORHEXIDINE GLUCONATE 4% CLEANSER FOR DECOLONIZATION TP SCH (21:16)
[2024-08-19] MEDS: MUPIROCIN 2% TOPICAL OINTMENT FOR DECOLONIZATION NS SCH (21:16)
[2024-08-19] MEDS ORDERED: MELATONIN 5 MG TABLETS PO PRN (21:42)
[2024-08-20] MEDS ORDERED: hydrALAZINE HCL 20 MG/ML VIAL IM PRN (00:03)
[2024-08-20] MEDS: hydrALAZINE HCL 20 MG/ML VIAL IVPUSH PRN (00:10)
[2024-08-20] MEDS: CODEINE SO4 30 MG TABLET PO PRN (09:10)
[2024-08-20] MEDS ORDERED: MELATONIN 5 MG TABLETS PO PRN (14:02)
[2024-08-20] MEDS ORDERED: hydrALAZINE HCL 20 MG/ML VIAL IVPUSH PRN (14:02)
[2024-08-20] MEDS ORDERED: ALBUTEROL SO4 0.083% IH SOL 2.5 MG/3 ML VIAL.NEB. NEB PRN (14:02)
[2024-08-20] MEDS: ALBUTEROL SO4 2.5/IPRATROPIUM 0.5 INH SOL 3 ML VIAL.NEB. NEB SCH (16:15)
[2024-08-20] MEDS: methylPREDNISolone NA SUCC 40 MG/1 ML VIAL IVPUSH SCH (17:56)
[2024-08-20] MEDS: INSULIN ASPART SLIDING SCALE (NOVOLOG) 1 VIAL SQ SCH (17:56)
[2024-08-20] MEDS: ATORVASTATIN CA 20 MG TABLET (FP) PO SCH (21:13)
[2024-08-20] MEDS: QUEtiapine FUMARATE 100 MG TABLET (FP) PO SCH (21:13)
[2024-08-20] MEDS: MONTELUKAST NA 10 MG TABLET PO SCH (21:13)
[2024-08-20] MEDS: GABAPENTIN 300 MG CAPSULE PO SCH (21:14)
[2024-08-20] MEDS: BUDESONIDE/FORMETEROL FUMARATE 160/4.5 mcg INHALER IH SCH (21:14)
[2024-08-20] MEDS: FLUoxetine HCL 20 MG CAPSULE PO SCH (21:14)
[2024-08-21] MEDS ORDERED: ALBUTEROL SO4 0.083% IH SOL 2.5 MG/3 ML VIAL.NEB. NEB PRN (02:25)
[2024-08-21] MEDS ORDERED: CODEINE SO4 30 MG TABLET PO PRN (02:27)
[2024-08-21] MEDS: INSULIN ASPART SLIDING SCALE (NOVOLOG) 1 VIAL SQ SCH (06:34)
[2024-08-21] MEDS: GABAPENTIN 300 MG CAPSULE PO SCH (06:34)
[2024-08-21] MEDS: LEVOTHYROXINE NA 100 MCG TABLET (FP) PO SCH (06:34)
[2024-08-21] MEDS ORDERED: LEVOTHYROXINE NA 100 MCG TABLET (FP) PO SCH (07:00)
[2024-08-21] MEDS: ALBUTEROL SO4 2.5/IPRATROPIUM 0.5 INH SOL 3 ML VIAL.NEB. NEB SCH (07:20)
[2024-08-21] MEDS: BICTEGRAV/EMTRICIT/TENOFOV (BIKTARVY) 50-200-25 MG TABLET PO SCH (08:36)
[2024-08-21 09:08] LABS: HEMATOCRIT 36.2 % (32.4-45.2); HEMOGLOBIN 11.8 GM/dL (10.7-15.3); MCH 28.3 pg (25.7-33.7); MCHC 32.5 g/dl (32.0-36.0); MEAN CELL VOLUME 87.1 fl (80-96); MEAN PLT VOLUME 7.5 fl (7.5-11.1); PLATELET COUNT 307 10^3/uL (134-434); RBC 4.16 M/mm3 (3.60-5.2); RDW 17.4 % (11.6-15.6)
[2024-08-21] MEDS: methylPREDNISolone NA SUCC 40 MG/1 ML VIAL IVPUSH SCH (09:08)
[2024-08-21] MEDS: ENOXAPARIN NA (PORCINE) 40 MG/0.4 ML DISP.SYRIN SQ SCH (09:08)
[2024-08-21] MEDS: BUDESONIDE/FORMETEROL FUMARATE 160/4.5 mcg INHALER IH SCH (09:08)
[2024-08-21 09:26] LABS: POTASSIUM 3.6 mmol/L (3.5-5.1)
[2024-08-21 09:38] LABS: ALBUMIN 2.9 g/dl (3.4-5.0); MAGNESIUM 2.1 mg/dL (1.8-2.4)
[2024-08-21 09:40] LABS: CREATININE 0.7 mg/dL (0.55-1.3)
[2024-08-21 09:41] LABS: PHOSPHOROUS 3.8 mg/dL (2.5-4.9)
[2024-08-21 09:42] LABS: BILIRUBIN,TOTAL 0.2 mg/dL (0.2-1); TOT PROT 6.2 g/dl (6.4-8.2)
[2024-08-21 09:58] LABS: ANISOCYTOSIS 1+
[2024-08-21] MEDS ORDERED: ABACAVIR/DOLUTEGRAVIR/LAMIVUDI (TRIUMEQ) TABLET PO SCH (10:00)
[2024-08-21] MEDS ORDERED: ENOXAPARIN NA (PORCINE) 40 MG/0.4 ML DISP.SYRIN SQ SCH ×2 (10:00)
[2024-08-21] MEDS ORDERED: PANTOPRAZOLE SODIUM 40 MG VIAL IVPUSH SCH (10:00)
[2024-08-21] MEDS: MELATONIN 5 MG TABLETS PO PRN (21:10)
[2024-08-21] MEDS: ATORVASTATIN CA 20 MG TABLET (FP) PO SCH (21:10)
[2024-08-21] MEDS: QUEtiapine FUMARATE 200 MG TABLET PO SCH (21:10)
[2024-08-21] MEDS: FLUoxetine HCL 20 MG CAPSULE PO SCH (21:10)
[2024-08-21] MEDS: MONTELUKAST NA 10 MG TABLET PO SCH (21:10)
[2024-08-22] MEDS: LIDOCAINE 5% TOPICAL PATCH TP SCH (10:37)
[2024-08-22] MEDS: guaiFENesin 600 MG TABLET.ER (FP) PO ONE (19:41)
[2024-08-22] MEDS: LIDOCAINE PATCH REMOVAL MC SCH (22:05)
[2024-08-23] VITALS: RESP 18
[2024-08-23 09:20] LABS: HEMATOCRIT 37.1 % (32.4-45.2); HEMOGLOBIN 11.7 GM/dL (10.7-15.3); MCH 27.8 pg (25.7-33.7); MCHC 31.6 g/dl (32.0-36.0); PLATELET COUNT 335 10^3/uL (134-434); RBC 4.22 M/mm3 (3.60-5.2); RDW 17.1 % (11.6-15.6); WHITE BLOOD COUNT 16.8 K/mm3 (4.0-10.0)
[2024-08-23 09:57] LABS: POTASSIUM 4.3 mmol/L (3.5-5.1)
[2024-08-23 10:13] LABS: CALCIUM 8.9 mg/dL (8.5-10.1); MAGNESIUM 2.3 mg/dL (1.8-2.4)
[2024-08-23 10:14] LABS: BLOOD UREA NITROGEN 17.8 mg/dL (7-18)
[2024-08-23 10:18] LABS: CREATININE 0.7 mg/dL (0.55-1.3)
[2024-08-23 11:38] VITALS: BP 145/87; PULSE 86; TEMP 98.1
== END 2024-08-23 10:55 | disposition home or self-care (01) | DRG 202 ==
LOC: JER 17:19 → JERBED 21:07 → OBSVTOIN 21:17 → INTOOBSV 21:17 → J7W 08-18 00:36 → J4W 08-18 12:44 → JICU 08-19 14:27 → J5S 08-20 22:23
PROVIDERS: ADMIT Student in an Organized Health Care Education/Training Program; ATTEND Internal Medicine
DX: J45.901 Unspecified asthma with (acute) exacerbation (principal); J96.01 Acute respiratory failure with hypoxia; Z21 Asymptomatic human immunodeficiency virus [HIV] infection status; E66.9 Obesity, unspecified; Z68.36 Body mass index [BMI] 36.0-36.9, adult; E03.9 Hypothyroidism, unspecified; I10 Essential (primary) hypertension; E11.9 Type 2 diabetes mellitus without complications; E78.5 Hyperlipidemia, unspecified; F41.9 Anxiety disorder, unspecified
CPT/HCPCS: 0241U-QW; 36415; 36600; 71045-TC-FY; 71275-TC; 80048; 80053; 82308; 82803; 82962; 83036; 83615; 83735; 83880; 84100; 84484; 85025; 85027; 85379; 86359; 86360; 87633; 93005; 93010; 94640; 94660; 94761; 97116-GP; 97161-GP; 99285-25; G0378; Q9967